=== PATIENT | female | born 1955 | race Caucasian/White ===

== ENCOUNTER 2023-07-03 12:58 | Outpatient (RCR) | payer MEDICARE, BC, SELFPAY ==
[2023-07-03 13:10] VITALS: BP 96/68
[2023-07-03] MEDS: NUCALA 1 MG SC (13:24)
== END 2023-07-06 11:34 | disposition home or self-care (01) ==
LOC: OID 12:58
PROVIDERS: ATTENDING PHYSICIAN Internal Medicine Critical Care Medicine; FAMILY PHYSICIAN Family Medicine
DX: J45.50 Severe persistent asthma, uncomplicated (principal); J44.9 Chronic obstructive pulmonary disease, unspecified
CPT/HCPCS: 96372; J2182

== ENCOUNTER 2023-08-28 11:29 | Outpatient (RCR) | payer MEDICARE, BC, SELFPAY ==
[2023-07-31 13:00] VITALS: BP 124/57
[2023-07-31] MEDS: NUCALA 1 MG SC (13:16)
[2023-08-28 11:36] VITALS: BP 118/65
[2023-08-28] MEDS: NUCALA 1 MG SC (12:03)
== END 2023-08-30 23:59 | disposition home or self-care (01) ==
LOC: OID 11:29
PROVIDERS: ATTENDING PHYSICIAN Internal Medicine Critical Care Medicine; FAMILY PHYSICIAN Family Medicine
DX: J45.50 Severe persistent asthma, uncomplicated (principal); J44.9 Chronic obstructive pulmonary disease, unspecified
CPT/HCPCS: 96372; J2182

== ENCOUNTER → 2023-09-09 12:29 | Outpatient (REF) | payer MEDICARE, BC, SELFPAY | LOC: RAD 12:29 | PROVIDERS: ATTENDING PHYSICIAN Internal Medicine Critical Care Medicine | DX: Z87.891 Personal history of nicotine dependence (principal) | CPT/HCPCS: 71271 ==

== ENCOUNTER 2023-09-25 13:46 | Outpatient (RCR) | payer MEDICARE, BC, SELFPAY ==
[2023-09-25 13:52] VITALS: BP 118/69
[2023-09-25] MEDS: NUCALA 1 MG SC (14:07)
== END 2023-09-28 09:56 | disposition home or self-care (01) ==
LOC: OID 13:46
PROVIDERS: ATTENDING PHYSICIAN Internal Medicine Critical Care Medicine; FAMILY PHYSICIAN Family Medicine
DX: J45.50 Severe persistent asthma, uncomplicated (principal); J44.9 Chronic obstructive pulmonary disease, unspecified
CPT/HCPCS: 96372; J2182

== ENCOUNTER 2023-10-23 13:48 | Outpatient (RCR) | payer MEDICARE, BC, SELFPAY ==
[2023-10-23 14:12] VITALS: BP 111/52
[2023-10-23] MEDS: NUCALA 1 MG SC (14:30)
== END 2023-10-30 23:59 | disposition home or self-care (01) ==
LOC: OID 13:48
PROVIDERS: ATTENDING PHYSICIAN Internal Medicine Critical Care Medicine; FAMILY PHYSICIAN Family Medicine
DX: J45.50 Severe persistent asthma, uncomplicated (principal); J44.9 Chronic obstructive pulmonary disease, unspecified
CPT/HCPCS: 96372; J2182

== ENCOUNTER 2023-11-19 19:37 | Inpatient (IN) | payer MEDICARE, BC, SELFPAY ==
[2023-11-19] VITALS (8 sets, daily range): BP systolic 97–142; BP diastolic 47–67; BMI 28.3; BMI 27.7
[2023-11-19 14:02] LABS: % Basophils 0.2 % (0-2); % Immature Granulocytes 0.3 % (0-0.5); % Lymphocytes 4.7 % (20.5-51.1); % Monocytes 3.5 % (1.7-9.3); % Neutrophils 91.3 % (42.2-75.2); Absolute Lymphocytes 0.6 10^3/uL (1.2-3.4); Absolute Monocytes 0.4 10^3/uL (0.1-0.6); Absolute Neutrophils 10.8 10^3/uL (1.4-6.5); Hematocrit 40.3 % (37.0-47.0); Hemoglobin 12.9 g/dL (12.0-16.0); Mean Corpuscular Hgb 28.8 pg (27.0-31.0); Mean Platelet Volume 10.6 fL (7.4-10.4); Nucleated Red Blood Cells % 0 %; Platelet Count 282 10^3/uL (130-400); Red Blood Cell Count 4.48 10^6/uL (4.20-5.40); Red Cell Dist. Width 14.2 % (11.5-14.5); White Blood Cell Count 11.8 10^3/uL (4.8-10.8)
[2023-11-19 14:19] LABS: ALT (SGPT) 19 U/L (0-35); AST (SGOT) 19 U/L (14-36); Alkaline Phosphatase 74 U/L (38-126); Blood Urea Nitrogen 18 mg/dl (7-17); Calcium 9.5 mg/dl (8.4-10.2); Carbon Dioxide 31 mmol/L (22-30); Chloride 102 mmol/L (98-107); Glucose 208 mg/dl (70-99); Potassium 4.3 mmol/L (3.5-5.1); Sodium 138 mmol/L (135-145); Total Bilirubin 0.4 mg/dl (0.2-1.3); eGFR > 60.00
--- NOTE | 2023-11-19 14:38 | ED.GENMED ---
History of Present Illness
<Brooklyn Lee PA-C - Last Filed: 11/19/23 20:41>
General
Chief Complaint: Breathing Problem
Source: patient
Exam Limitations: none
Time Seen by Provider: 11/19/23 14:19
Nursing documentation reviewed up to this point in time: agreed with
History of Present Illness
History of Present Illness:
This is a 68-year-old female with past medical history of COPD, diabetes on metformin, hypothyroidism presenting emergency department today with concerns of shortness of breath. Patient states that at the start of October, her COPD's are getting a lot
worse. She started experiencing a lot more shortness of breath and chest tightness and usually does at baseline. Patient takes montelukast inhaler daily and uses albuterol inhaler as needed and DuoNeb treatments as needed. In the past, patient
had to do use 2 L of oxygen with sleeping but now, the past week or so, she has had to use oxygen during the day as well. Patient saw her training program manager and was put on oral prednisone 2 different times with no relief. Patient denies any fevers or
chills, any sick contacts, any swelling in her legs. Patient denies any back pain. Patient denies any syncopal episodes. Patient denies any abdominal pain, nausea, vomiting. Patient denies any constipation or diarrhea. Patient is up-to-date on
her vaccinations
Past History
<Brooklyn Lee PA-C - Last Filed: 11/19/23 20:41>
Past History
ED Past Medical History: Asthma, COPD, GERD, Hypothyroidism and Other (Acute pancreatitis November 2015. Gastritis, [place]'s esophagus)
ED Past Surgical History: Orthopedic
Patient has exhibited threatening behavior?: No
PSI?: No
Social History
Tobacco: Former smoker
Alcohol: Occasional
Drug: None
Personal:
Living: with family
Employment: Retired
Family History
Family History: Other; Negative Diabetes, Hypertension or CAD
Review of Systems
<Brooklyn Lee PA-C - Last Filed: 11/19/23 20:41>
Review of Systems
All Other Systems: ROS reviewed and negative except as documented in HPI and ROS
Phy Exam
<Brooklyn Lee PA-C - Last Filed: 11/19/23 20:41>
Physical Exam
Physical Exam:
General: Patient is well appearing and in no acute distress; non-toxic
Skin: Warm and dry, no rashes or lesions
Head: Normocephalic, atraumatic
Eyes: Sclera non-icteric. EOMs intact.
Cardiac: Regular rate and rhythm, no murmurs
Peripheral Vascular: No lower extremity swelling or edema, 2+ dorsalis pedis pulses bilaterally
Pulm: Increased respiratory rate, poor air movement, scattered wheezing heard in multiple garnica bilaterally
Abdomen: No abdominal tenderness to palpation
Neuro: CN II-XII intact, no focal neurologic deficits.
Psychiatric: Appropriate mood and affect.
Scores
<Brooklyn Lee PA-C - Last Filed: 11/19/23 20:41>
Heart Failure Risk
Heart Failure Risk Score: Not Applicable
Course
<TYRA Contreras Last Filed: 11/19/23 20:41>
Orders/Labs/Results
Orders:
Orders
11/19/23 13:49
Complete Blood Count/With Diff Urgent
Comprehensive Metabolic Panel Urgent
Glycohemoglobin (HgbA1c) Urgent
11/19/23 14:21
CR Chest - 2 Views Urgent
Comment:
Reason For Exam: shortness of breath
11/19/23 14:45
COVID-19 Antigen Urgent
Source: Nasal Swab
Influenza A+B Rapid Molecular Urgent
MARGARITO Source: Nasal Swab
Specimen Description:
11/19/23 Dinner
1800 calorie (15 carb) Diabetic
At Your Request: Full Participation
Does patient need a safe tray?: No
11/19/23 15:25
Ipratropium/Albuterol Sulfate [Duoneb] 3 ml INH R NOW ONE
11/19/23 16:03
Ipratropium/Albuterol Sulfate [Duoneb] 3 ml INH R NOW STA
11/19/23 16:10
Ipratropium/Albuterol Sulfate [Duoneb] 3 ml INH R NOW ONE
11/19/23 16:11
Ipratropium/Albuterol Sulfate [Duoneb] 3 ml .ROUTE .STK-MED ONE
11/19/23 17:46
Dexamethasone [Decadron] 10 mg PO NOW STA
11/19/23 17:54
Doxycycline Hyclate [Vibramycin] 100 mg 0.9% Sodium Chloride 250 ml [Nss] 250 ml IV NOW
11/19/23 18:47
Admit/Transfer Patient As Directed
Co-Sign Provider:
Level of Care: Inpatient admission
Assign to:: Medical/Surgical
Physician / Group: Hospitalist
Transfer to: Medical/Surgical
Diagnosis: COPD exacerbation
Patient Condition: Fair
Reason for Hospitalization: COPD exacerbation
Expected length of stay greater than two midnights?: Yes
ELOS- Estimated Length of Stay in days: 3
I certify the patient meets the requirements for IP care: Yes
11/19/23 19:00
Code Status As Directed
Resuscitation Status: Full Code
11/19/23 20:25
0.9% Sodium Chloride 1000 ml [Nss] 1,000 ml IV 100 mls/hr
Acetaminophen [Tylenol] 650 mg PO Q4HPRN PRN
Albuterol Nebs [Ventolin Nebules] 2.5 mg INH R Q6HPRN PRN
Albuterol [ProAIR HFA INHALER] 2 puff INH R Q4HPRN PRN
Azithromycin [Zithromax] 500 mg PO Q24H
Budesonide [Pulmicort] 0.5 mg INH R BID
Dexamethasone Sod Phosphate [Decadron] 4 mg IV Q8H
Dextrose 50%-Water [Dextrose 50% Syringe] 12.5 grams IV [id number] PRN
Glucagon [GlucaGen] 1 mg IM PRN PRN
Ipratropium/Albuterol Sulfate [Duoneb] 3 ml INH R Q4HPRN PRN
Ipratropium/Albuterol Sulfate [Duoneb] 3 ml INH R QID
Ipratropium/Albuterol Sulfate [Duoneb] 3 ml INH R QID
Metformin Extended Release [Glucophage Xr Extended Release] 500 mg PO BID
11/19/23 20:25
Add On- LAB Routine
Tests Added?: HgbA1C to today's lab
Electrocardiogram (*1) Urgent
Reason for Study: QTc Monitoring
PULMONARY CONSULT Routine
Consulting Provider: Jermain Powers
Was physician already notified: Yes
Reason for consult: COPD exacerbation
Activity As Directed
Activity Level: As Tolerated
Bedside Glucose Monitoring As Directed
Frequency: AC&HS
Additional Instructions:: Change to q6h if pt on TPN, tube feeding or not eating
INT (Intravenous Needle Therapy) As Directed
Comment: maintain IV access
Intake/ Output As Directed
Frequency: Per unit guidelines
Vital Signs As Directed
Frequency: Per unit guidelines
Weight As Directed
Frequency: Daily
Copd Education [RESP] Routine
O2 Therapy [RESP] Routine
Nasal Cannula Liter Flow: 3 LPM
Titrate/Wean O2 to maintain O2 sat greater than (%): 92
Special Instructions: adjust, if necessary, to avoid hyperoxia in CO2 retainers.
Use High Flow O2 if necessary
Ot Eval And Treat Routine
Pt Eval And Treat Routine
Activity Level: As Tolerated
DX Deep Vein Thrombosis Video Routine
11/20/23 02:00
Dexamethasone Sod Phosphate [Decadron] 4 mg IV Q8H
11/20/23 06:00
Electrocardiogram (*1) IN AM
Reason for Study: QTc Monitoring
Basic Metabolic Panel IN AM
Complete Blood Count/With Diff IN AM
Glycohemoglobin (HgbA1c) IN AM
Protime/PTT IN AM
Influenza A+B Rapid Molecular IN AM
MARGARITO Source: Nasal Swab
Specimen Description:
Levothyroxine [Synthroid] 137 mcg PO DAILY@0600
11/20/23 07:30
Insulin Aspart Corrective Low [Novolog Flexpen-Low Resistance] See Protocol SC AC
11/20/23 08:00
Cholecalciferol (Vitamin D3) [VITAMIN D3 (cholecalciferol)] 25 mcg PO DAILY
Furosemide [Lasix] 20 mg PO DAILY
Guaifenesin [Mucinex] 600 mg PO DAILY
Montelukast Sodium [Singulair] 10 mg PO DAILY
Multivitamin [Theragran] 1 tablet PO DAILY
pmjptceqsey-istudgqrf-dwnuwjav [Trelegy Ellipta] 1 inh INH R DAILY
11/20/23 18:00
Atorvastatin [Lipitor] 10 mg PO DAILY
Enoxaparin Sodium [Lovenox] 40 mg SC QPM
Abnormal Lab Results
11/19/23
13:49
WBC 11.8 H 10^3/uL
(4.8-10.8)
MCHC 32.0 L g/dL
(33.0-37.0)
MPV 10.6 H fL
(7.4-10.4)
Absolute Neuts (auto) 10.8 H 10^3/uL
(1.4-6.5)
Absolute Lymphs (auto) 0.6 L 10^3/uL
(1.2-3.4)
Neutrophils % 91.3 H %
(42.2-75.2)
Lymphocytes % 4.7 L %
(20.5-51.1)
Carbon Dioxide 31 H mmol/L
(22-30)
BUN 18 H mg/dl
(7-17)
Glucose 208 H mg/dl
(70-99)
Total Protein 6.0 L g/dl
(6.3-8.2)
11/19/23 13:49
11/19/23 13:49
Vital Signs
Initial and Last Documented VS:
Initial Vital Signs
Temp Pulse Resp BP Pulse Ox
99.5 F 92 16 115/58 98
11/19/23 13:41 11/19/23 13:41 11/19/23 13:41 11/19/23 13:41 11/19/23 13:41
Last Documented Vital Signs
Temp Pulse Resp BP Pulse Ox
99.5 F 87 26 97/58 96
11/19/23 13:41 11/19/23 19:45 11/19/23 19:45 11/19/23 19:00 11/19/23 19:45
<Jose Reaves, DO - Last Filed: 11/19/23 17:32>
Orders/Labs/Results
Orders:
Orders
11/19/23 13:49
Complete Blood Count/With Diff Urgent
Comprehensive Metabolic Panel Urgent
Glycohemoglobin (HgbA1c) Urgent
11/19/23 14:21
CR Chest - 2 Views Urgent
Comment:
Reason For Exam: shortness of breath
11/19/23 14:45
COVID-19 Antigen Urgent
Source: Nasal Swab
Influenza A+B Rapid Molecular Urgent
MARGARITO Source: Nasal Swab
Specimen Description:
11/19/23 Dinner
1800 calorie (15 carb) Diabetic
At Your Request: Full Participation
Does patient need a safe tray?: No
11/19/23 15:25
Ipratropium/Albuterol Sulfate [Duoneb] 3 ml INH R NOW ONE
11/19/23 16:03
Ipratropium/Albuterol Sulfate [Duoneb] 3 ml INH R NOW STA
11/19/23 16:10
Ipratropium/Albuterol Sulfate [Duoneb] 3 ml INH R NOW ONE
11/19/23 16:11
Ipratropium/Albuterol Sulfate [Duoneb] 3 ml .ROUTE .STK-MED ONE
11/19/23 17:46
Dexamethasone [Decadron] 10 mg PO NOW STA
11/19/23 17:54
Doxycycline Hyclate [Vibramycin] 100 mg 0.9% Sodium Chloride 250 ml [Nss] 250 ml IV NOW
11/19/23 18:47
Admit/Transfer Patient As Directed
Co-Sign Provider:
Level of Care: Inpatient admission
Assign to:: Medical/Surgical
Physician / Group: Hospitalist
Transfer to: Medical/Surgical
Diagnosis: COPD exacerbation
Patient Condition: Fair
Reason for Hospitalization: COPD exacerbation
Expected length of stay greater than two midnights?: Yes
ELOS- Estimated Length of Stay in days: 3
I certify the patient meets the requirements for IP care: Yes
11/19/23 19:00
Code Status As Directed
Resuscitation Status: Full Code
11/19/23 20:25
0.9% Sodium Chloride 1000 ml [Nss] 1,000 ml IV 100 mls/hr
Acetaminophen [Tylenol] 650 mg PO Q4HPRN PRN
Albuterol Nebs [Ventolin Nebules] 2.5 mg INH R Q6HPRN PRN
Albuterol [ProAIR HFA INHALER] 2 puff INH R Q4HPRN PRN
Azithromycin [Zithromax] 500 mg PO Q24H
Budesonide [Pulmicort] 0.5 mg INH R BID
Dexamethasone Sod Phosphate [Decadron] 4 mg IV Q8H
Dextrose 50%-Water [Dextrose 50% Syringe] 12.5 grams IV [id number] PRN
Glucagon [GlucaGen] 1 mg IM PRN PRN
Ipratropium/Albuterol Sulfate [Duoneb] 3 ml INH R Q4HPRN PRN
Ipratropium/Albuterol Sulfate [Duoneb] 3 ml INH R QID
Ipratropium/Albuterol Sulfate [Duoneb] 3 ml INH R QID
Metformin Extended Release [Glucophage Xr Extended Release] 500 mg PO BID
11/19/23 20:25
Add On- LAB Routine
Tests Added?: HgbA1C to today's lab
Electrocardiogram (*1) Urgent
Reason for Study: QTc Monitoring
PULMONARY CONSULT Routine
Consulting Provider: Jermain Powers
Was physician already notified: Yes
Reason for consult: COPD exacerbation
Activity As Directed
Activity Level: As Tolerated
Bedside Glucose Monitoring As Directed
Frequency: AC&HS
Additional Instructions:: Change to q6h if pt on TPN, tube feeding or not eating
INT (Intravenous Needle Therapy) As Directed
Comment: maintain IV access
Intake/ Output As Directed
Frequency: Per unit guidelines
Vital Signs As Directed
Frequency: Per unit guidelines
Weight As Directed
Frequency: Daily
Copd Education [RESP] Routine
O2 Therapy [RESP] Routine
Nasal Cannula Liter Flow: 3 LPM
Titrate/Wean O2 to maintain O2 sat greater than (%): 92
Special Instructions: adjust, if necessary, to avoid hyperoxia in CO2 retainers.
Use High Flow O2 if necessary
Ot Eval And Treat Routine
Pt Eval And Treat Routine
Activity Level: As Tolerated
DX Deep Vein Thrombosis Video Routine
11/20/23 02:00
Dexamethasone Sod Phosphate [Decadron] 4 mg IV Q8H
11/20/23 06:00
Electrocardiogram (*1) IN AM
Reason for Study: QTc Monitoring
Basic Metabolic Panel IN AM
Complete Blood Count/With Diff IN AM
Glycohemoglobin (HgbA1c) IN AM
Protime/PTT IN AM
Influenza A+B Rapid Molecular IN AM
MARGARITO Source: Nasal Swab
Specimen Description:
Levothyroxine [Synthroid] 137 mcg PO DAILY@0600
11/20/23 07:30
Insulin Aspart Corrective Low [Novolog Flexpen-Low Resistance] See Protocol SC AC
11/20/23 08:00
Cholecalciferol (Vitamin D3) [VITAMIN D3 (cholecalciferol)] 25 mcg PO DAILY
Furosemide [Lasix] 20 mg PO DAILY
Guaifenesin [Mucinex] 600 mg PO DAILY
Montelukast Sodium [Singulair] 10 mg PO DAILY
Multivitamin [Theragran] 1 tablet PO DAILY
tgathzcrtxn-ohcvwonhs-wqcaktrd [Trelegy Ellipta] 1 inh INH R DAILY
11/20/23 18:00
Atorvastatin [Lipitor] 10 mg PO DAILY
Enoxaparin Sodium [Lovenox] 40 mg SC QPM
Abnormal Lab Results
11/19/23
13:49
WBC 11.8 H 10^3/uL
(4.8-10.8)
MCHC 32.0 L g/dL
(33.0-37.0)
MPV 10.6 H fL
(7.4-10.4)
Absolute Neuts (auto) 10.8 H 10^3/uL
(1.4-6.5)
Absolute Lymphs (auto) 0.6 L 10^3/uL
(1.2-3.4)
Neutrophils % 91.3 H %
(42.2-75.2)
Lymphocytes % 4.7 L %
(20.5-51.1)
Carbon Dioxide 31 H mmol/L
(22-30)
BUN 18 H mg/dl
(7-17)
Glucose 208 H mg/dl
(70-99)
Total Protein 6.0 L g/dl
(6.3-8.2)
11/19/23 13:49
11/19/23 13:49
Vital Signs
Initial and Last Documented VS:
Initial Vital Signs
Temp Pulse Resp BP Pulse Ox
99.5 F 92 16 115/58 98
11/19/23 13:41 11/19/23 13:41 11/19/23 13:41 11/19/23 13:41 11/19/23 13:41
Last Documented Vital Signs
Temp Pulse Resp BP Pulse Ox
99.5 F 87 26 97/58 96
11/19/23 13:41 11/19/23 19:45 11/19/23 19:45 11/19/23 19:00 11/19/23 19:45
Jorgelt;Brooklyn Lee PA-C - Last Filed: 11/19/23 20:41>
MDM/Problems Addressed
Differential Diagnosis Includes:
ddx include COPD progression, COPD exacerbation, pneumonia, heart failure, ACS, pulmonary embolism
MDM/Problems Addressed:
Shortness of breath:
This is a 68-year-old female with past medical history of COPD, diabetes on metformin, hypothyroidism presenting emergency department today with concerns of shortness of breath. Patient denies any purulent sputum production, any cough. Patient
denies any back pain. Patient was sent in by her training program manager for further evaluation because patient has been feeling outpatient steroid tapers. Patient also previously only use oxygen at night and now she is requiring it throughout the day to
maintain her oxygen saturations. Because of this new oxygen requirement and failing outpatient therapy admission is indicated.
Chronic conditions affecting care:
COPD, diabetes on metformin, hypothyroidism
Acute Exacerbation and/or Progression of Chronic Illness:
COPD, diabetes on metformin, hypothyroidism
<Brooklyn Lee PA-C - Last Filed: 11/19/23 20:41>
*Critical Care Note
Total Time (30-74mins, 75-104mins- exclusive of procedures): Not Applicable
<Brooklyn Lee PA-C - Last Filed: 11/19/23 20:41>
Patient Management
Discussion with other providers: Hospitalist
Escalation/DeEscalation of care consider admission/obs:
Admit indicated, please see MDM. Case discussed with my attending Dr. Reaves.
ED Attending Note
<Brooklyn Lee PA-C - Last Filed: 11/19/23 20:41>
-
Portions of this chart may have been created with voice recognition software.� Occasional wrong word or��sound alike� substitutions may have occurred due to the inherent limitations of voice recognition software.
<Jose Reaves DO - Last Filed: 11/19/23 17:32>
ED Attending Note
Patient seen and examined by attending physician: Yes
I performed the substantive portion of visit, reviewed & personally made and approve the management plan that is documented in note by myself or SETH.: Yes
Discharge Plan
Departure
Patient Disposition: Admit
Date of Disposition: 11/19/23
Time of Disposition: 17:50
Admit to: Med/Surg
Presentation/result/management discussed w/ accepting MD/DO: Hospitalist
Condition: Fair
Discharge Problem:
COPD exacerbation
Interventions
Interventions:
*Risk Screen - Suicide Last Done: 11/19/23 14:26
*General Assessment Last Done: 11/19/23 14:26
*Neglect/Abuse Screening Last Done: 11/19/23 14:26
ED- Fall Risk Assessment Last Done: 11/19/23 14:26
*ED COVID-19 Vaccine History Last Done: 11/19/23 13:41
*Nursing Disposition Last Done: 11/19/23 20:26
ED- Cardiac Assessment Last Done: 11/19/23 16:21
ED- Pulmonary Assessment Last Done: 11/19/23 16:21
Discharge Date and Time
Discharge Date/Time: 11/19/23 20:27
[2023-11-19 15:05] LABS: COVID-19 Antigen Negative (Negative)
[2023-11-19] MEDS: DUONEB 3 ML INH ×4 (15:39→21:09)
[2023-11-19] MEDS: DECADRON 10 MG PO (17:56)
[2023-11-19] MEDS: VIBRAMYCIN 260 MG IV (18:32)
--- NOTE | 2023-11-19 18:47 | HPS.HSE ---
Addendum entered and electronically signed by Tashia Spears MD 11/19/23 20:20:
Patient seen and examined independently--agree with plan set forth by Dr. Hood
Allergies
Allergy/AdvReac Type Severity Reaction Status Date / Time
latex Allergy Rash Verified 11/19/23 13:44
levofloxacin [From Levaquin] Allergy Achilles Verified 11/19/23 13:44
Tendonitis
Penicillins Allergy Full-body Verified 11/19/23 13:44
rash;
tolerated
ceftriaxone
and
cefepime
Home Medications
montelukast 10 mg tablet 10 mg PO DAILY Lung/breathing issues 07/12/11
levothyroxine 137 mcg tablet (Synthroid) 137 mcg PO DAILY Thyroid 06/09/18
dupilumab 300 mg/2 mL subcutaneous syringe (Dupixent) 300 mg SQ Q2W asthma/atopic dermatitis 05/11/19
atorvastatin 10 mg tablet 10 mg PO DAILY High cholesterol 04/29/21
metformin 500 mg tablet,extended release 24 hr 500 mg PO BID Diabetes 04/15/22
multivitamin 1 tab PO DAILY Supplement 04/15/22
guaifenesin 600 mg tablet, extended release 12 hr (Mucinex) 600 mg PO DAILY Congestion 07/15/22
furosemide 20 mg tablet (Lasix) 20 mg PO DAILY Fluid Retention/Swelling 09/18/22
prednisone 20 mg tablet 40 mg PO DAILY 10/23/23
albuterol sulfate 2.5 mg/3 mL (0.083 %) solution for nebulization 2.5 mg inhalation R Q6HPRN PRN sob/wheezing 11/19/23
albuterol sulfate 90 mcg/actuation aerosol inhaler 2 puff inhalation R Q4HPRN PRN sob 11/19/23
budesonide 0.5 mg/2 mL suspension for nebulization 0.5 mg inhalation R BID 11/19/23
cholecalciferol (vitamin D3) 25 mcg (1,000 unit) tablet 25 mcg PO DAILY 11/19/23
fluticasone fur. 200 mcg-umeclid 62.5 mcg-vilant 25 mcg inhalat.powder (Trelegy Ellipta) 1 inh inhalation R DAILY 11/19/23
mepolizumab 100 mg/mL subcutaneous auto-injector (Nucala) 100 mg SC QMONTH 11/19/23
GENERAL: well developed, well nourished, female in mild resp distress
HEENT: NC/AT--O2 NC 3L
HEART: regular rate and rhythm, +S1, +S2
LUNGS : decreased breath sounds bilaterally with diffuse wheezing with forced exp wheeze
ABDOM: soft, nontender, nondistended, + bowel sounds
EXT: no cyanosis, clubbing, or edema
NEUROLOGIC: grossly intact
Acute hypoxic respiratory failure--Secondary to COPD exacerbation (for the last 3 weeks) with increased oxygen requirements--Patient known to Dr. Kaiser. Recent steroid treatment was not effective--CXR unremarkable. Pneumonia less likely---Start
Decadron 4 mg every 8 hours---Continue albuterol, Trelegy, DuoNeb, Mucinex, Pulmicort and montelukast---Maintain O2> 92%, MAP> 65---Hold prednisone---Hold Nucala---Hold Dupixent---Pulmonary consult--Azithromycin 500 mg daily--Wean off oxygen as
tolerated--Low-dose CT outpatient due to smoking history--PT/OT.
Type 2 diabetes--Continue metformin--Sliding scale insulin--Accu-Cheks.
Hypercholesterolemia--Continue atorvastatin
Heart failure with preserved ejection fraction without exacerbation---Continue furosemide.
Hypothyroidism--Continue levothyroxine
DVT prophylaxis: Lovenox
CODE STATUS: Full code
Original Note:
Family Physician
-
Family Physician: Gayathri Tena
Chief Complaint
-
Shortness of breath
History of Present Illness
Patient is a 68-year old female with past medical history of COPD, eosinophilic asthma, pancreatitis, type II diabetes, hypothyroidism, centrilobular emphysema, obstructive sleep apnea, GERD, who presents to ED with complaint of worsening
shortness of breath on exertion and wheezing for the past month. She also reports chest tightness, occasional cough, with minimal sputum production. Patient was recently seen by her military [employer] wireless manager and was started on 40 mg prednisone daily due to
worsening symptoms. However patient did not improve prompting her visit to the ED today. She reports using portable oxygen with concentrator at home at 2 L only at night, however recently patient has started using oxygen during the day. She uses
albuterol, DuoNeb, and montelukast inhaler at home as needed.She denies any sick contacts, home pets, worsening cough from baseline, chest pain, dizziness, and headaches, fever and chills, abdominal pain, nausea, vomiting, diarrhea.
Medical History
Past Medical History
Past Medical History: Reports Asthma, COPD, GERD, Hypothyroidism and NIDDM
Past Surgical History: Reports Cholecystectomy (Laparoscopic with [facility] 03/2023) and
Additional Past Surgical History:
Torn rotator cuff 05/03/2020
Social History
Tobacco: Former Smoker
Drug: None
Personal:
Living: With Family
Employment: Retired
Family History
Family History: Not pertinent
Allergies / Home Medications
Allergies reflects when
Allergies
Allergy/AdvReac Type Severity Reaction Status Date / Time
latex Allergy Rash Verified 11/19/23 13:44
levofloxacin [From Levaquin] Allergy Achilles Verified 11/19/23 13:44
Tendonitis
Penicillins Allergy Full-body Verified 11/19/23 13:44
rash;
tolerated
ceftriaxone
and
cefepime
Allergies were last updated in [facility].
Home Medications with original date entered in [facility]
Allergy/Medication List:
Allergies
Allergy/AdvReac Type Severity Reaction Status Date / Time
latex Allergy Rash Verified 11/19/23 13:44
levofloxacin [From Levaquin] Allergy Achilles Verified 11/19/23 13:44
Tendonitis
Penicillins Allergy Full-body Verified 11/19/23 13:44
rash;
tolerated
ceftriaxone
and
cefepime
Review of Systems
-
History Source: Patient
A 12 point ROS was completed and negative except as noted: Yes
Constitutional: Denies Fever or Chills
EENT: Reports No Symptoms
Respiratory: Reports Cough, Trouble Breathing and Other (Wheezing)
Cardiac: Reports No Symptoms; Denies Chest Pain or Palpitations
Abdomen/GI: Reports No Symptoms; Denies Abdominal Pain, Nausea, Vomiting, Diarrhea or Constipated
: Reports No Symptoms
Musculoskeletal: Reports No Symptoms
Skin: Reports No Symptoms
Physical Exam
Vital Signs
Vital Signs
Temp Pulse Resp BP Pulse Ox
99.5 F 88 25 103/60 97
11/19/23 13:41 11/19/23 18:32 11/19/23 18:32 11/19/23 18:00 11/19/23 18:32
Physical Exam
General: Well Developed, No Apparent Distress, Comfortable and Conversant
HEENT: NormoCephalic
Respiratory: Wheezes (Bilateral wheezing) and Non Labored Respirations; No Crackles or Accessory Resp Muscle Use
Cardiac: S1/S2; No Murmur or Rub
GI: Soft, Non Tender, Non Distended and Normal Bowel Sounds
Musculoskeletal: No Cyanosis and No Edema
Skin: Warm and Dry
Neuro: Awake, Alert, Oriented and AO x 3
Psych: Calm and Intact Judgment/Insight
Laboratory Results
-
11/19/23 13:49
11/19/23 13:49
Laboratory Results
Total Bilirubin 0.4 mg/dl (0.2-1.3) 11/19/23 13:49
AST 19 U/L (14-36) 11/19/23 13:49
ALT 19 U/L (0-35) 11/19/23 13:49
Alkaline Phosphatase 74 U/L (38-126) 11/19/23 13:49
Data Reviewed
-
Diagnostic Radiology: Image Personally Visualized and interpreted and Report Reviewed by me
Lab Data: Labs Reviewed by me and Discussed with Physician
Old Records: Reviewed
Impression/Plan
-
Assessment: 68-year-old female with history of COPD, eosinophilic asthma, centrilobular emphysema, type 2 diabetes hypothyroidism who presented to ED with shortness of breath on exertion, wheezing and chest tightness for the past month. Patient
was recently seen by her [employer] wireless manager, treated with 40 mg prednisone but did not improve.
IMPRESSION:
Acute hypoxic respiratory failure
Not requiring 3 L oxygen NC
PLAN:
Acute hypoxic respiratory failure.
-Secondary to COPD exacerbation with increased oxygen requirements.
-Patient known to Dr. Kaiser. Recent steroid treatment was not effective.
-[id number] history of smoking, quit 2010.
-CXR unremarkable. Pneumonia less likely.
-Start Decadron 4 mg every 8 hours.
-Continue albuterol, Trelegy, DuoNeb, Mucinex, Pulmicort and montelukast.
-Maintain O2> 92%, MAP> 65.
-Hold prednisone.
-Hold Nucala.
-Hold Dupixent
-Pulmonary consult
-Azithromycin 500 mg daily
-Wean off oxygen as tolerated.
-Low-dose CT outpatient due to smoking history.
-Consider breathing treatments in AM.
-PT/OT.
Type 2 diabetes
-Continue metformin
-Sliding scale insulin
-Accu-Cheks.
-Blood glucose goal 140 to 180 mg/DL
Hypercholesterolemia
-Continue atorvastatin
Heart failure with preserved ejection fraction
-Continue furosemide.
Hypothyroidism
-Continue levothyroxine
DVT prophylaxis: Lovenox
CODE STATUS: Full code
[2023-11-19] MEDS: NSS 1000 IV (20:44)
[2023-11-19] MEDS: PULMICORT 0.5 MG INH (21:09)
[2023-11-19 21:25] LABS: Glucose - Point of Care 227 mg/dl (70-99)
[2023-11-19] MEDS: GLUCOPHAGE XR EXTENDED RELEASE 500 MG PO (21:27)
[2023-11-19] MEDS: ZITHROMAX 500 MG PO (21:27)
--- NOTE | 2023-11-19 21:56 | PTCARENOTE ---
Received patient from ED, AAOx4. Patient able to ambulate from stretcher to bed with steady gait. No c/o pain at this time. 96% on 3 L, FORTUNE, moist non productive cough. Oriented to unit, call delatorre in reach. Plan of care continues.
[2023-11-20] MEDS: DECADRON 4 MG IV ×3 (02:21→17:30)
[2023-11-20] MEDS: SYNTHROID 137 MCG PO (05:56)
[2023-11-20 05:57] LABS: % Basophils 0.2 % (0-2); % Immature Granulocytes 0.9 % (0-0.5); % Monocytes 1.3 % (1.7-9.3); % Neutrophils 93.6 % (42.2-75.2); Absolute Immature Granulocytes 0.1 10^3/uL (0-0.05); Absolute Lymphocytes 0.5 10^3/uL (1.2-3.4); Absolute Monocytes 0.2 10^3/uL (0.1-0.6); Absolute Neutrophils 10.8 10^3/uL (1.4-6.5); Hematocrit 37.6 % (37.0-47.0); Hemoglobin 12.3 g/dL (12.0-16.0); Mean Corp Hgb Conc. 32.7 g/dL (33.0-37.0); Mean Corpuscular Hgb 28.8 pg (27.0-31.0); Mean Corpuscular Volume 88.1 fL (81.0-99.0); Mean Platelet Volume 10.7 fL (7.4-10.4); Nucleated Red Blood Cells % 0 %; Platelet Count 266 10^3/uL (130-400); Red Blood Cell Count 4.27 10^6/uL (4.20-5.40); Red Cell Dist. Width 14.3 % (11.5-14.5); White Blood Cell Count 11.5 10^3/uL (4.8-10.8)
[2023-11-20] MEDS: NSS 1000 IV (05:58)
[2023-11-20 06:09] LABS: INR 0.97; PT 12.8 Sec (11.4-14.6)
[2023-11-20 06:10] LABS: APTT 23.2 Sec (23.4-35.0)
--- NOTE | 2023-11-20 06:12 | PTCARENOTE ---
EKG's done x 2 this shift per order to monitor QTC. 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
[2023-11-20 06:13] LABS: Blood Urea Nitrogen 21 mg/dl (7-17); Calcium 9.1 mg/dl (8.4-10.2); Carbon Dioxide 28 mmol/L (22-30); Chloride 106 mmol/L (98-107); Estimated Creatinine Clearance 88 ml/min; Glucose 155 mg/dl (70-99); Potassium 4.8 mmol/L (3.5-5.1); Sodium 139 mmol/L (135-145); eGFR > 60.00
[2023-11-20] MEDS: DUONEB 3 ML INH (06:54)
[2023-11-20] MEDS: PULMICORT 0.5 MG INH ×2 (06:55→19:36)
[2023-11-20 07:11] LABS: Glucose - Point of Care 175 mg/dl (70-99)
--- NOTE | 2023-11-20 07:27 | W.PN.HOSP.TC ---
Addendum entered and electronically signed by Tashia Spears MD 11/20/23 19:00:
pt seen and examined independently--agree with plan as set forth by Dr. Hood
GENERAL: well developed, well nourished, female in mild resp distress
HEENT: NC/AT--O2 NC 3L
HEART: regular rate and rhythm, +S1, +S2
LUNGS : decreased breath sounds bilaterally with diffuse wheezing with forced exp wheeze--although improved from admission
ABDOM: soft, nontender, nondistended, + bowel sounds
EXT: no cyanosis, clubbing, or edema
NEUROLOGIC: grossly intact
Acute hypoxic respiratory failure--Secondary to COPD exacerbation (for the last 3 weeks) with increased oxygen requirements--Patient known to Dr. Kaiser. Recent steroid treatment was not effective--CXR unremarkable. Pneumonia less likely---Start
Decadron 4 mg every 8 hours, if doing OK in AM, change to prednisone 50 mg daily with taper at d/c---Continue albuterol, Trelegy, DuoNeb, Mucinex, Pulmicort and montelukast---Maintain O2> 92%, MAP> 65---Hold prednisone---Hold Nucala---Hold
Dupixent---apprec Pulmonary--Azithromycin 500 mg daily then back to three times weekly--Wean off oxygen as tolerated--Low-dose CT outpatient due to smoking history--PT/OT.
Type 2 diabetes--Continue metformin--Sliding scale insulin--Accu-Cheks.
Hypercholesterolemia--Continue atorvastatin
Heart failure with preserved ejection fraction without exacerbation---Continue furosemide.
Hypothyroidism--Continue levothyroxine
DVT prophylaxis: Lovenox
CODE STATUS: Full code
Original Note:
Today's Communication/Plan
-
Continue bronchodilators
Continue antibiotics
Williamson catheter, I's and O's, daily weights
Wean oxygen as tolerated
Wean of steroids
Accu-Cheks
Assessment / Plan
Assessment / Plan
Assessment: 68-year old female with past medical history of COPD, eosinophilic asthma, pancreatitis, type II diabetes, hypothyroidism, centrilobular emphysema, obstructive sleep apnea, GERD, who presents to ED with complaint of worsening
shortness of breath on exertion and wheezing for the past month. She also reports chest tightness, occasional cough, with minimal sputum production.
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
COPD
Eosinophilic asthma
Pancreatitis
Type 2 diabetes
Hypothyroidism
Central lobar emphysema
Obstructive sleep apnea
GERD
Impression/plan:
Acute hypoxic respiratory failure.
-Secondary to COPD exacerbation with increased oxygen requirements, currently on 3 L oxygen NC. O2 sat 94%. [id number] history of smoking, quit 2010.
-Patient known to Dr. Kaiser. CXR unremarkable. Pneumonia less likely.
-Continue Decadron 4 mg Q8hrs, nebulized albuterol QID, Symbicort 160 mcg, Mucinex, Pulmicort 0.5 mg BID, and Spiriva 160/4.5 mcg, montelukast 10 mg daily, as needed nebulized bronchodilators.
-Incentive spirometry.
-Maintain O2> 92% with PRN O2 supplementation, MAP> 65.
-Hold home prednisone, Nucala, and Dupixent
-Pulmonary assessment and recs appreciated.
-Continue azithromycin 500 mg daily.
-Plan to wean off steroids tomorrow and consider starting 2.5 to 5 mg regular
-Wean off oxygen as tolerated.
-Low-dose CT 08/13/2023 reports no acute disease, chest with mild right upper lobe lesion bronchiolitis patient.
-PT/OT.
Type 2 diabetes
-HbA1c 6.5.
-Continue metformin
-Sliding scale insulin
-Accu-Cheks.
-Blood glucose goal 140 to 180 mg/DL
Hypercholesterolemia
-Continue atorvastatin
Heart failure with preserved ejection fraction
-Weight up from June 2023, was 76.3 kg, currently trending back down to 80.1 kg.
-Continue furosemide.
-Monitor daily weights, I's and O appreciated.
Hypothyroidism
-Continue levothyroxine
DVT prophylaxis: Lovenox
CODE STATUS: Full code
Anticipated Discharge: > 48 hours
Subjective/Interval History
-
Date of Service: November 20, 2023
Objective Data
-
Labs:
Laboratory Results
11/20/23
05:06
WBC 11.5 H
Hgb 12.3
Hct 37.6
Plt Count 266
PT 12.8
INR 0.97
APTT 23.2 L
Sodium 139
Potassium 4.8
Chloride 106
Carbon Dioxide 28
BUN 21 H
Creatinine 0.5 L
Glucose 155 H
Calcium 9.1
Vital Signs:
Daily temperature
11/20/23
07:40
Temp 97.7 F
Vital Signs
Temp Pulse Resp BP Pulse Ox
97.7 F 78 18 142/67 97
11/19/23 23:29 11/20/23 06:55 11/20/23 06:55 11/19/23 23:29 11/20/23 06:55
I&O
11/19/23 11/20/23 11/21/23
06:59 06:59 06:59
Intake Total 480 / 480
Balance 480 / 480
Review of Systems
-
History Source: Patient
All other systems: Not reviewed unless documented
Constitutional: Reports No Symptoms; Denies Fever or Chills
EENT: Reports No Symptoms Reported; Denies Sore Throat
Respiratory: Reports Cough (Mild intermittent cough) and Wheezing; Denies Trouble Breathing
Cardiac: Reports No Symptoms; Denies Chest Pain or Palpitations
Abdomen/GI: Reports No Symptoms; Denies Abdominal Pain, Nausea, Vomiting or Constipated
Genitourinary: Reports No Symptoms
Musculoskeletal: Reports No Symptoms
Skin: Reports No Symptoms
Neuro: Reports No Symptoms
Physical Exam
-
General: No Apparent Distress, Comfortable and Conversant; Negative Fever or Chills
HEENT: Atraumatic and Moist Mucous Membranes
Respiratory: Wheezes and Non Labored Respirations; Negative Rales or Crackles
Cardiac: Regular Rhythm, S1/S2 and Irregular Rhythm; Negative Murmur or Rub
GI: Soft, Nontender, Nondistended and Normal Bowel Sounds
Musculoskeletal: No Clubbing, No Cyanosis and No Edema
Neuro: Awake, Alert, Oriented, AO x 3 and No Motor Deficits
Psych: Calm and Intact Judgement/Insight
Data Reviewed
-
Diagnostic Radiology: Image personally visualized and interpreted and Report Reviewed by me
Labs: Labs Reviewed by me and Discussed with Physician
Old Records: Reviewed
[2023-11-20 07:40] VITALS: BP 113/50
[2023-11-20] MEDS: LASIX 20 MG PO (07:55)
[2023-11-20] MEDS: THERAGRAN 1 TABLET PO (07:55)
[2023-11-20] MEDS: GLUCOPHAGE XR EXTENDED RELEASE 500 MG PO ×2 (07:55→16:25)
[2023-11-20] MEDS: VITAMIN D3 (cholecalciferol) 25 MCG PO (07:55)
[2023-11-20] MEDS: SINGULAIR 10 MG PO (07:55)
[2023-11-20] MEDS: MUCINEX 600 MG PO (07:55)
[2023-11-20] MEDS: NOVOLOG FLEXPEN-LOW RESISTANCE 1 UNITS SC ×2 (07:57→12:37)
[2023-11-20 08:40] VITALS: PULSE 84; O2SAT 97
[2023-11-20 08:42] VITALS: BP 127/57; PULSE 84; O2SAT 95
--- NOTE | 2023-11-20 08:45 | CON.PUL ---
Consultation
Consultation Request
Date/Time Consultation Requested: 11/19/2023 -2024
Date/Time Consultation Performed: 11/20/2023 - 921
Requesting Provider: Dr. Hood
Performing Provider: Dr. Iglesias
Reason for Consultation: COPD exacerbation
Medical History
-
Chief Complaint: SOB
History of Present Illness:
68-year-old female former tobacco smoker (~40-PY Hx, quit 2010) with a past medical history of very severe COPD due to unremitting asthma on Nucala, centrilobular emphysema, atopic dermatitis on Dupixent, ISHMAEL intolerant to CPAP, GERD,
hypothyroidism, and chronic hypoxemic respiratory failure on home oxygen who presents with shortness of breath. Patient started to develop SOB in the first few weeks of September and she was started on a prednisone taper on 10/07/2023 by our office, and
after finishing this she felt SOB again. She first came to our office again on 10/22/2023 and saw TRACY Seo. Repeat prednisone taper was started over 18 days starting at 60 mg. Unfortunately she came back into the office again on 11/04
again with SOB and was placed back on prednisone 40 mg daily for 2 weeks. She also was on albuterol via nebulizer QID + budesonide BID, in addition to her maintenance inhaler. She returned to the office visit on 11/18 and was sent to the ER given
continued SOB despite multiple courses of prednisone. In triage she was saturating 98% on room air, breathing at 16 breaths/min, heart rate 92, afebrile to 99.5 �F and BP 115/58. Labs showed leukocytosis to 11.8, glucose 208, and was COVID antigen
negative. Flu swab A/B was negative. CXR shows no active cardiopulmonary disease. She was given Decadron, doxycycline and DuoNebs and admitted to the hospitalist service with pulmonary service consulted for additional management/recommendations.
When I saw the patient she was in bed, in no acute distress. Still endorsing a dry cough + SOB with activity. She is on room air breathing comfortably. She says she feels a little better compared to when she was first admitted. Of note, she last
saw [facility] about 2 years ago but stopped seeing them as there was no additional interventions that they could offer that we are not offering here at [facility] Regarding her history of CHF (suspected given lower extremity swelling), she still
sees [facility] with Dr. Washington. She continues to use her Lasix as well as her inhalers. She currently denies chest pain, headache, abdominal pain, fevers or chills.
Patient follows with us in the office and sees Dr. Kaiser with last office visit on 07/16/2023. Patient is prescribed Trelegy 200mcg and azithromycin 3 times weekly. Patient takes Nucala for asthma and also takes Dupixent for atopic dermatitis.
She actually says that the Dupixent helps her breathing as well and that she was taking Nucala before she started the Dupixent. She has been evaluated at [facility] in the past and has also seen cardiology specialist of
[place]. She previously used to be on chronic prednisone at 2.5 mg daily but as of this last office visit with us, she has been off of chronic steroids.
PMHx: Very severe COPD due to asthma in setting of centrilobular emphysema on nucala & chronic prednisone with azithromycin TIW, atopic dermatitis on dupixent, chronic hypoxemic respiratory failure on home oxygen (wears 2L/min as needed, and 2L/m
HS), ISHMAEL intolerant to CPAP, GERD with reflux esophagitis, hypothyroidism, Hx of Washington esophagus, hx of torn rotator cuff, HFpEF
PSHx: , rotator cuff repair (May 2020), cholecystectomy (03/2023)
Past Medical History
Past Medical History: Other (Above as per HPI)
Past Surgical History: Other (Above as per HPI)
Social History
Tobacco: Former Smoker (Quit 2010, ~33-wmfr-zxcm history)
Alcohol: None
Drug: None
Personal:
Living: With Family
Employment: Retired
Family History
Family History: Reviewed & Not Pertinent
Allergies / Home Medications
Allergies
Allergy/AdvReac Type Severity Reaction Status Date / Time
latex Allergy Rash Verified 11/19/23 13:44
levofloxacin [From Levaquin] Allergy Achilles Verified 11/19/23 13:44
Tendonitis
Penicillins Allergy Full-body Verified 11/19/23 13:44
rash;
tolerated
ceftriaxone
and
cefepime
Home Medications
�Medication �Instructions �Recorded �Confirmed �Last Taken �Type
montelukast 10 mg tablet 10 mg PO DAILY Lung/breathing 07/12/11 11/19/23 11/19/23 History
issues
levothyroxine 137 mcg tablet 137 mcg PO DAILY Thyroid 06/09/18 11/19/23 11/19/23 History
(Synthroid)
dupilumab 300 mg/2 mL subcutaneous 300 mg SQ Q2W asthma/atopic 05/11/19 11/19/23 11/18/23 History
syringe (Dupixent) dermatitis
atorvastatin 10 mg tablet 10 mg PO DAILY High cholesterol 04/29/21 11/19/23 11/19/23 History
metformin 500 mg tablet,extended 500 mg PO BID Diabetes 04/15/22 11/19/23 11/19/23 History
release 24 hr
multivitamin 1 tab PO DAILY Supplement 04/15/22 11/19/23 11/19/23 History
guaifenesin 600 mg tablet, 600 mg PO DAILY Congestion 07/15/22 11/19/23 11/19/23 History
extended release 12 hr (Mucinex)
furosemide 20 mg tablet (Lasix) 20 mg PO DAILY Fluid 09/18/22 11/19/23 11/19/23 History
Retention/Swelling
prednisone 20 mg tablet 40 mg PO DAILY 10/23/23 11/19/23 11/19/23 History
albuterol sulfate 2.5 mg/3 mL 2.5 mg inhalation R Q6HPRN PRN 11/19/23 11/19/23 11/19/23 History
(0.083 %) solution for nebulization sob/wheezing
albuterol sulfate 90 mcg/actuation 2 puff inhalation R Q4HPRN PRN sob 11/19/23 11/19/23 1 Day Ago History
aerosol inhaler ~11/18/23
budesonide 0.5 mg/2 mL suspension 0.5 mg inhalation R BID 11/19/23 11/19/23 11/19/23 History
for nebulization
cholecalciferol (vitamin D3) 25 25 mcg PO DAILY 11/19/23 11/19/23 11/19/23 History
mcg (1,000 unit) tablet
fluticasone fur. 200 mcg-umeclid 1 inh inhalation R DAILY 11/19/23 11/19/23 11/19/23 History
62.5 mcg-vilant 25 mcg
inhalat.powder (Trelegy Ellipta)
mepolizumab 100 mg/mL subcutaneous 100 mg SC QMONTH 11/19/23 11/19/23 1 Month Ago History
auto-injector (Nucala) ~10/19/23
Review of Systems
-
History Source: Patient
All other systems: Negative unless noted
Vitals / Labs / Diagnostic Testing
Vital Signs
Temp Pulse Resp BP Pulse Ox
97.7 F 82 18 113/68 95
11/20/23 07:40 11/20/23 07:55 11/20/23 07:40 11/20/23 07:55 11/20/23 07:40
Lab Data
11/20/23 05:06
11/20/23 05:06
Laboratory Results
11/20/23
05:06
PT 12.8
INR 0.97
APTT 23.2 L
Microbiology
11/20/23 05:02 Nasal Swab Influenza Types A & B (DANIEL) - Final
Negative for Influenza A & B, NAAT
Negative results must be combined with clinical observations
and patient history.
Nucleic Acid Amplification test (NAAT)performed on the
[employer] platform.
11/19/23 14:45 Nasal Swab Influenza Types A & B (DANIEL) - Final
Negative for Influenza A & B, NAAT
Negative results must be combined with clinical observations
and patient history.
Nucleic Acid Amplification test (NAAT)performed on the
[employer] NOW platform.
Diagnostic Testing:
Physical Exam
-
HEENT: Normocephalic and Anicteric
Cardiovascular: S1/S2 and Peripheral Edema (Negative)
Respiratory: Wheeze (Bilaterally), Rales (Negative) and Rhonchi (Negative)
GI: Soft, Non Distended, Non Tender and Normal Bowel Sounds
Neurology: AO x 3 and Tremors (Negative)
Skin: Warm and Dry
General: Comfortable, Chills (Negative) and Sweats (Negative)
Assessment
-
Assessment: 68-year-old female former tobacco smoker (~40-PY Hx, quit 2010) with a past medical history of very severe COPD due to unremitting asthma on Nucala, centrilobular emphysema, atopic dermatitis on Dupixent, ISHMAEL intolerant to CPAP, GERD,
hypothyroidism, and chronic hypoxemic respiratory failure on home oxygen who presents with shortness of breath. Patient started to develop SOB in the first few weeks of September and she was started on a prednisone taper on 10/07/2023 by our office, and
after finishing this she felt SOB again. She first came to our office again on 10/22/2023 and saw TRACY Seo. Repeat prednisone taper was started over 18 days starting at 60 mg. Unfortunately she came back into the office again on 11/04
again with SOB and was placed back on prednisone 40 mg daily for 2 weeks. She also was on albuterol via nebulizer QID + budesonide BID, in addition to her maintenance inhaler. She returned to the office visit on 11/18 and was sent to the ER given
continued SOB despite multiple courses of prednisone. In triage she was saturating 98% on room air, breathing at 16 breaths/min, heart rate 92, afebrile to 99.5 �F and BP 115/58. Labs showed leukocytosis to 11.8, glucose 208, and was COVID antigen
negative. Flu swab A/B was negative. CXR shows no active cardiopulmonary disease. She was given Decadron, doxycycline and DuoNebs and admitted to the hospitalist service with pulmonary service consulted for additional management/recommendations.
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
ISHMAEL intolerant to CPAP, GERD, hypothyroidism, Hx of Washington's esophagus, hx of torn rotator cuff, chronic cholecystitis s/p cholecystectomy
Impression:
#COPD exacerbation
#Very severe COPD (post-BD FEV1: 0.8L, DLco: 20% via PFT from 08/2022) due to combined emphysema and unremitting asthma on biologic therapy, on azithro TIW
#ISHMAEL intolerant to CPAP
#Former tobacco use disorder (Smoked 1 PPD X 39 years, quit in 2010)
#Atopic dermatitis on dupixent
#Chronic hypoxemic respiratory failure on supplemental O2
#Hypothyroidism
#GERD with Washington's esophagus
#Chronic HFpEF
Plan:
- Continue systemic steroids and wean as tolerated - currently on Decadron 4 mg IV q8hr
- Continue budesonide 0.5 mg BID + nebulized albuterol QID
- Symbicort 160mcg + spiriva respimat 2.5mcg/act and albuterol QID
- prn nebulized bronchodilators for in-between breakthrough symptoms
- Continue with mucolytics with mucinex and will start flutter valve
- Maintain SpO2 >88-94% with supplemental O2 as needed
- Incentive spirometer encouraged
- Considering she has a [id number] Hx of smoking, and she quit in 2010, she continues to qualify for lung cancer screening via LDCT chest until 2025. Last LDCT chest done on 09/09/2023 showing no pulmonary nodules. Continue follow up as an
outpatient with Dr. Kaiser.
- Resume Nucala + dupixent as an outpatient
- Depending on if we can successfully wean her fully off steroids, she may require a low dose daily prednisone (2.5-5mg) if it means it will keep her out of the hospital - we will address this in the office
- Trend WBC and fever curve
- Ok to continue zithromax mainly for anti-inflammatory effects - once 1.5g given, then resume 250mg TIW dosing
- Hold off on any additional Abx at this time as pt non-toxic appearing and does not have typical pneumonia symptoms
- Given her Hx of HFpEF, monitor volume status, trend UOP and continue her home dose of lasix
- Replete electrolytes with K>4, Mg>2
- Maintain euglycemia with goal BG >100 and <180
- DVT ppx
Pulmonary service will continue to follow along. Once discharged we will set up outpatient follow-up with Dr. Kaiser.
Total time spent today was 55 minutes for this encounter. Time includes reviewing laboratory test/imaging results, reviewing pertinent medical records, obtaining and reviewing medical history, performing an appropriate exam, ordering medications,
tests and procedures. Time also includes documentation of this encounter, coordinating patient care and communicating with other healthcare professionals. Total time does not include separately billed tests performed on this date of service.
Data:
CXR 11-19-2023: No active cardiopulmonary disease; Mild cardiomegaly
[2023-11-20] MEDS: SPIRIVA RESPIMAT 2.5 MCG INH (10:02)
[2023-11-20] MEDS: SYMBICORT 160/4.5 MCG INHALER INH (10:02)
[2023-11-20 10:07] LABS: Glycohemoglobin (HgbA1c) 6.5 % (4.0-5.6)
[2023-11-20] MEDS: VENTOLIN NEBULES 2.5 MG INH ×3 (11:05→19:36)
[2023-11-20 11:47] LABS: Glucose - Point of Care 150 mg/dl (70-99)
--- NOTE | 2023-11-20 15:14 | CM ---
Addendum entered by Clotilde Romero 11/20/23 15:16:
IMM given to patient to sign when she was able to review.
Original Note:
Patient seen at bedside with physician and residents. Patient states that she lives with her in a 2 story home with no DME. Patient PCP is Dr. Cruz and she uses [facility] in [place]. Patient has home O2 from [employer] and uses 2 liters at
home. Patient plan is home with no needs. CM will continue to follow for discharge planning needs.
Plan; home with no needs.
[2023-11-20 15:31] VITALS: BP 121/57
[2023-11-20 16:35] LABS: Glucose - Point of Care 270 mg/dl (70-99)
[2023-11-20] MEDS: NOVOLOG FLEXPEN-LOW RESISTANCE 3 UNITS SC (16:53)
[2023-11-20] MEDS: LIPITOR 10 MG PO (17:30)
[2023-11-20] MEDS: LOVENOX 40 MG SC (17:30)
[2023-11-20] MEDS: SYMBICORT 160/4.5 MCG INHALER 2 PUFF INH (19:36)
[2023-11-20] MEDS: MUCINEX 1200 MG PO (20:37)
[2023-11-20] MEDS: ZITHROMAX 500 MG PO (20:37)
[2023-11-20 21:29] LABS: Glucose - Point of Care 199 mg/dl (70-99)
[2023-11-20 23:54] VITALS: BP 128/66
[2023-11-21] MEDS: DECADRON 4 MG IV ×2 (01:56→11:16)
[2023-11-21] MEDS: SYNTHROID 137 MCG PO (06:06)
[2023-11-21 07:19] LABS: Glucose - Point of Care 159 mg/dl (70-99)
[2023-11-21 07:26] LABS: % Basophils 0.1 % (0-2); % Immature Granulocytes 0.6 % (0-0.5); % Lymphocytes 5.2 % (20.5-51.1); % Monocytes 3.5 % (1.7-9.3); % Neutrophils 90.6 % (42.2-75.2); Absolute Immature Granulocytes 0.1 10^3/uL (0-0.05); Absolute Lymphocytes 0.6 10^3/uL (1.2-3.4); Absolute Monocytes 0.4 10^3/uL (0.1-0.6); Absolute Neutrophils 10.9 10^3/uL (1.4-6.5); Hematocrit 38.8 % (37.0-47.0); Hemoglobin 12.1 g/dL (12.0-16.0); Mean Corp Hgb Conc. 31.2 g/dL (33.0-37.0); Mean Corpuscular Hgb 28.1 pg (27.0-31.0); Mean Platelet Volume 11.2 fL (7.4-10.4); Nucleated Red Blood Cells % 0 %; Platelet Count 250 10^3/uL (130-400); Red Blood Cell Count 4.31 10^6/uL (4.20-5.40); Red Cell Dist. Width 14.3 % (11.5-14.5)
[2023-11-21] MEDS: SPIRIVA RESPIMAT 2.5 MCG 2 PUFF INH (07:28)
[2023-11-21] MEDS: SYMBICORT 160/4.5 MCG INHALER 2 PUFF INH (07:28)
[2023-11-21] MEDS: PULMICORT 0.5 MG INH (07:28)
[2023-11-21] MEDS: VENTOLIN NEBULES 2.5 MG INH ×2 (07:28→11:27)
[2023-11-21 07:30] VITALS: BP 122/57
[2023-11-21 07:38] LABS: Blood Urea Nitrogen 15 mg/dl (7-17); Calcium 9.5 mg/dl (8.4-10.2); Carbon Dioxide 27 mmol/L (22-30); Chloride 102 mmol/L (98-107); Estimated Creatinine Clearance 88 ml/min; Glucose 135 mg/dl (70-99); Potassium 4.6 mmol/L (3.5-5.1); Sodium 136 mmol/L (135-145); eGFR > 60.00
--- NOTE | 2023-11-21 07:52 | W.PN.HOSP.TC ---
Addendum entered and electronically signed by Tashia Spears MD 11/21/23 19:38:
pt seen and examined independently--agree with plan as set forth by Dr. Hood
GENERAL: well developed, well nourished, female in mild resp distress
HEENT: NC/AT--room air
HEART: regular rate and rhythm, +S1, +S2
LUNGS : decreased breath sounds bilaterally
ABDOM: soft, nontender, nondistended, + bowel sounds
EXT: no cyanosis, clubbing, or edema
NEUROLOGIC: grossly intact
ok for d/c with resumption of her outpt inhalers
Acute hypoxic respiratory failure--Secondary to COPD exacerbation (for the last 3 weeks) with increased oxygen requirements--Patient known to Dr. Kaiser. Recent steroid treatment was not effective--CXR unremarkable. Pneumonia less likely---Start
Decadron 4 mg every 8 hours, change to prednisone 50 mg daily with taper at d/c---Continue albuterol, Trelegy, DuoNeb, Mucinex, Pulmicort and montelukast---Maintain O2> 92%, MAP> 65--Hold Nucala---Hold Dupixent---apprec Pulmonary--Azithromycin 500
mg daily then back to three times weekly---Low-dose CT outpatient due to smoking history--PT/OT.
Type 2 diabetes--Continue metformin--Sliding scale insulin--Accu-Cheks.
Hypercholesterolemia--Continue atorvastatin
Heart failure with preserved ejection fraction without exacerbation---Continue furosemide.
Hypothyroidism--Continue levothyroxine
DVT prophylaxis: Lovenox
CODE STATUS: Full code
Original Note:
Today's Communication/Plan
-
Discontinue Decadron and start prednisone taper
Discharge planning.
Assessment / Plan
Assessment / Plan
Assessment: 68-year old female with past medical history of COPD, eosinophilic asthma, pancreatitis, type II diabetes, hypothyroidism, centrilobular emphysema, obstructive sleep apnea, GERD, who presents to ED with complaint of worsening
shortness of breath on exertion and wheezing for the past month. She also reports chest tightness, occasional cough, with minimal sputum production.
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
COPD
Eosinophilic asthma
Pancreatitis
Type 2 diabetes
Hypothyroidism
Central lobar emphysema
Obstructive sleep apnea
GERD
Impression/plan:
Acute hypoxic respiratory failure.
-Secondary to COPD exacerbation with increased oxygen requirements, [id number] history of smoking, quit 2010.
-O2 supplementation weaned off, patient saturating at 93% on room air s/p treatment with nebulized albuterol QID, Symbicort 160 mcg, Mucinex, Pulmicort 0.5 mg BID, and Spiriva 160/4.5 mcg, montelukast 10 mg daily, as needed nebulized bronchodilators.
-Patient known to Dr. Kaiser. CXR unremarkable.
-Incentive spirometry.
-Discontinue Decadron 4 mg Q8hrs, start prednisone taper with discharge planning.
-Maintain O2> 92% with PRN O2 supplementation, MAP> 65.
-Hold home prednisone, Nucala, and Dupixent
-Pulmonary assessment and recs appreciated.
-Continue azithromycin 500 mg daily.
-Plan to wean off steroids tomorrow and consider starting 2.5 to 5 mg regular
-Low-dose CT 08/13/2023 reports no acute disease, chest with mild right upper lobe lesion bronchiolitis patient.
-PT/OT.
Type 2 diabetes
-HbA1c 6.5.
-Continue metformin
-Sliding scale insulin
-Accu-Cheks.
-Blood glucose goal 140 to 180 mg/DL
Hypercholesterolemia
-Continue atorvastatin
Heart failure with preserved ejection fraction
-Weight up from June 2023, was 76.3 kg, currently trending back down to 80.1 kg.
-Continue furosemide.
-Monitor daily weights, I's and O appreciated.
Hypothyroidism
-Continue levothyroxine
DVT prophylaxis: Lovenox
CODE STATUS: Full code
Anticipated Discharge: Today
Subjective/Interval History
-
Date of Service: November 21, 2023
Objective Data
-
Labs:
Laboratory Results
11/21/23
06:27
WBC 12.0 H
Hgb 12.1
Hct 38.8
Plt Count 250
Sodium 136
Potassium 4.6
Chloride 102
Carbon Dioxide 27
BUN 15
Creatinine 0.5 L
Glucose 135 H
Calcium 9.5
Vital Signs:
T.max 24 HRS
11/20/23
23:54
Temp 98.4 F
Vital Signs
Temp Pulse Resp BP Pulse Ox
98.4 F 75 18 128/66 96
11/20/23 23:54 11/21/23 07:33 11/21/23 07:33 11/20/23 23:54 11/21/23 07:33
I&O
11/20/23 11/21/23 11/22/23
06:59 06:59 06:59
Intake Total 480 / 480 1890 / 1890
Output Total 300 / 300
Balance 480 / 480 1590 / 1590
Review of Systems
-
History Source: Patient
All other systems: Not reviewed unless documented
Constitutional: Reports No Symptoms; Denies Fever or Chills
EENT: Reports No Symptoms Reported; Denies Sore Throat
Respiratory: Reports Cough (Mild intermittent cough) and Wheezing; Denies Trouble Breathing
Cardiac: Reports No Symptoms; Denies Chest Pain or Palpitations
Abdomen/GI: Reports No Symptoms; Denies Abdominal Pain, Nausea, Vomiting or Constipated
Genitourinary: Reports No Symptoms
Musculoskeletal: Reports No Symptoms
Skin: Reports No Symptoms
Neuro: Reports No Symptoms
Physical Exam
-
General: No Apparent Distress, Comfortable and Conversant; Negative Fever or Chills
HEENT: Atraumatic and Moist Mucous Membranes
Respiratory: Wheezes and Non Labored Respirations; Negative Rales or Crackles
Cardiac: Regular Rhythm, S1/S2 and Irregular Rhythm; Negative Murmur or Rub
GI: Soft, Nontender, Nondistended and Normal Bowel Sounds
Musculoskeletal: No Clubbing, No Cyanosis and No Edema
Neuro: Awake, Alert, Oriented, AO x 3 and No Motor Deficits
Psych: Calm and Intact Judgement/Insight
Data Reviewed
-
Diagnostic Radiology: Image personally visualized and interpreted and Report Reviewed by me
Labs: Labs Reviewed by me and Discussed with Physician
Old Records: Reviewed
[2023-11-21] MEDS: MUCINEX 1200 MG PO (08:00)
[2023-11-21] MEDS: LIPITOR 10 MG PO (08:00)
[2023-11-21] MEDS: GLUCOPHAGE XR EXTENDED RELEASE 500 MG PO (08:01)
[2023-11-21] MEDS: LASIX 20 MG PO (08:01)
[2023-11-21] MEDS: SINGULAIR 10 MG PO (08:01)
[2023-11-21] MEDS: THERAGRAN 1 TABLET PO (08:01)
[2023-11-21] MEDS: VITAMIN D3 (cholecalciferol) 25 MCG PO (08:01)
[2023-11-21] MEDS: NOVOLOG FLEXPEN-LOW RESISTANCE 1 UNITS SC (08:01)
--- NOTE | 2023-11-21 08:04 | W.DCSUMMARY ---
Addendum entered and electronically signed by Tashia Spears MD 11/21/23 19:53:
Fully read and agree with summary set forth by Dr. Hood.
Pt is sable for d/c with tapering prednisone dosing. Once she gets to 20 mg daily, she should stay on that dose until she is seen by pulmonary. If she sees pulmonary first, then they can further direct the prednisone.
Original Note:
Discharge Summary
Discharge Data
Date of Admission: 11/19/23
Date of Discharge: 11/21/23
-
Pending Results: No
Hospital Course
Disposition : Home
Primary care physician : Gayathri Will
Principal Discharge diagnosis : Acute hypoxic respiratory failure, COPD exacerbation
Chronic Discharge diagnosis : Type 2 diabetes, hypercholesterolemia, heart failure with preserved ejection fraction with exacerbation, hypothyroidism, chronic Pancreatitis, history of celiac asthma, centrilobular emphysema, ISHMAEL, GERD.
Hospital Course : 68-year old female with past medical history of COPD, eosinophilic asthma, pancreatitis, type II diabetes, hypothyroidism, centrilobular emphysema, obstructive sleep apnea, GERD, known to Dr. Kaiser, who presents to ED with
complaint of worsening shortness of breath on exertion and wheezing for the past month. She also reports chest tightness, occasional cough, with minimal sputum production. She was recently seen by her esthetician facialist, treated with 40 mg prednisone
daily without improvement of symptoms. She reported using portable oxygen with concentrator at home only at night however, she has increased use of oxygen during the day prompting her presentation. While in the ED, her chest x-ray showed mild
cardiomegaly but no active cardiopulmonary disease. Her labs showed leukocytosis of 11.8, glucose 208, and COVID antigen negative. Flu swab A/B was negative. She was started on IV Decadron, doxycycline and DuoNebs and was admitted for further
evaluation and management.
During the course of her admission, patient was seen in consultation with pulmonology, her Nucala and Dupixent were both held and she was started on azithromycin. She subsequently improved after 3 days stay in the hospital and was assessed by
pulmonology during her stay. Patient is now stable for discharge to home and has been instructed to follow-up with her family care physician, and pulmonology in less than 1 week. She was also discharged on azithromycin 1 tablet 3 times weekly and
a steroid taper. She was also instructed to continue prednisone at 20 mg until she is able to see her esthetician facialist.
Discharge Plan
-
Patient Disposition: Home (Routine Discharge)
Discharge Diagnosis/Procedures: COPD exacerbation, eosinophilic asthma, type 2 diabetes, hypothyroidism, centrilobular emphysema, GERD, obstructive sleep apnea, chronic pancreatitis, hypercholesterolemia, HFpEF, hypothyroidism
Condition: Good
Diet: Low Cholesterol and Diabetic, Carb Controlled
Activity: As tolerated
Driving Restrictions: As prior to admission
Bathing Restrictions: None
Referrals:
Alberto Serrano MD [Active] - in less than 1 week
Gayathri Tena MD [Family Provider] - in less than 1 week
Additional Discharge Medication Instructions: Start azithromycin 250 mg tablet by mouth, 3 times weekly. Start prednisone 50 mg taper and follow the instructions. When you get to 20 mg daily dose, stay on that dose until you see your
esthetician facialist.
Prescriptions:
New
prednisone 10 mg Tablet
See Rx Instructions .ROUTE .COMPLEX Qty: 45 0RF
Rx Instructions:
Take By Mouth:
50mg daily x3days,40mg daily x3days,
30mg daily x3days, 20mg daily x3days,
10mg daily x3days
azithromycin 250 mg Tablet
250 mg PO .TIW Qty: 12 0RF
Continued
montelukast 10 MG tablet
10 mg PO DAILY
levothyroxine [Synthroid] 137 MCG tablet
137 mcg PO DAILY
Dupixent Syringe 300 MG/2 ML syringe
300 mg SQ Q2W
atorvastatin 10 MG tablet
10 mg PO DAILY
multivitamin Tablet
1 tab PO DAILY
metformin 500 mg Tablet Extended Release 24 Hr
500 mg PO BID
guaifenesin [Mucinex] 600 mg tablet extended release 12hr
600 mg PO DAILY
furosemide [Lasix] 20 mg Tablet
20 mg PO DAILY
prednisone 20 mg Tablet
40 mg PO DAILY
albuterol sulfate 2.5 mg /3 mL (0.083 %) Solution For Nebulization
2.5 mg INHALATION R Q6HPRN PRN (Reason: sob/wheezing)
budesonide 0.5 mg/2 mL Suspension For Nebulization
0.5 mg INHALATION R BID
albuterol sulfate 90 mcg/actuation Hfa Aerosol Inhaler
2 puff INHALATION R Q4HPRN PRN (Reason: sob)
cholecalciferol (vitamin D3) 25 mcg (1,000 unit) Tablet
25 mcg PO DAILY
Nucala 100 mg/mL Auto-Injector
100 mg SC QMONTH
Patient Comments:
11/19/2023, next dose due tomorrow (11/20/2023) per pt.
Trelegy Ellipta 200-62.5-25 mcg Blister With Device
1 inh INHALATION R DAILY
Discharge Orders:
Discharge Patient (As Directed); Ordered 11/21/23
Ordered By: Erik Hood
Discharge Date and Time
Discharge Date/Time: 11/21/23 13:21
Print Language: FRISIAN
--- NOTE | 2023-11-21 10:46 | PTCARENOTE ---
Pt. weaned off O2, pt. ambulated on RA , sats 93-97%.
[2023-11-21] MEDS: DELTASONE 50 MG PO (11:16)
[2023-11-21 11:25] VITALS: BP 157/71
[2023-11-21 11:58] LABS: Glucose - Point of Care 112 mg/dl (70-99)
[2023-11-21] MEDS: NOVOLOG FLEXPEN-LOW RESISTANCE SC (12:02)
== END 2023-11-21 13:21 | disposition home or self-care (01) | DRG 190 ==
LOC: 4 EAST ACU 19:37
PROVIDERS: Emergency Medicine; Physician Assistant; Student in an Organized Health Care Education/Training Program; ADMITTING PHYSICIAN Internal Medicine; EMERGENCY PHYSICIAN Emergency Medicine; FAMILY PHYSICIAN Family Medicine; OTHER PHYSICIAN Internal Medicine Critical Care Medicine
DX: J43.2 Centrilobular emphysema (principal); J96.21 Acute and chronic respiratory failure with hypoxia; I50.32 Chronic diastolic (congestive) heart failure; J82.83 Eosinophilic asthma; K86.1 Other chronic pancreatitis; L20.9 Atopic dermatitis, unspecified; E03.9 Hypothyroidism, unspecified; G47.33 Obstructive sleep apnea (adult) (pediatric); K21.00 Gastro-esophageal reflux disease with esophagitis, without bleeding; E11.9 Type 2 diabetes mellitus without complications; K22.70 Barrett's esophagus without dysplasia; E78.00 Pure hypercholesterolemia, unspecified; Z87.891 Personal history of nicotine dependence; Z11.52 Encounter for screening for COVID-19; Z88.0 Allergy status to penicillin; Z88.1 Allergy status to other antibiotic agents; Z91.040 Latex allergy status; Z79.890 Hormone replacement therapy; Z79.84 Long term (current) use of oral hypoglycemic drugs; Z79.51 Long term (current) use of inhaled steroids; Z79.52 Long term (current) use of systemic steroids; Z99.81 Dependence on supplemental oxygen; Z90.49 Acquired absence of other specified parts of digestive tract
CPT/HCPCS: 71046; 80048; 80053; 82962; 83036; 85025; 85610; 85730; 87502; 87811; 93005; 94640; 97162; 97166; 99285

== ENCOUNTER 2023-11-24 14:25 | Outpatient (RCR) | payer MEDICARE, BC, SELFPAY ==
[2023-11-24 14:47] VITALS: BP 134/60
[2023-11-24] MEDS: NUCALA 1 MG SC (14:56)
== END 2023-11-25 11:16 | disposition home or self-care (01) ==
LOC: OID 14:25
PROVIDERS: ATTENDING PHYSICIAN Internal Medicine Critical Care Medicine; FAMILY PHYSICIAN Family Medicine
DX: J45.50 Severe persistent asthma, uncomplicated (principal); J45.30 Mild persistent asthma, uncomplicated (principal); J44.9 Chronic obstructive pulmonary disease, unspecified; R06.02 Shortness of breath; Z87.891 Personal history of nicotine dependence
CPT/HCPCS: 96372; J2182

== ENCOUNTER 2023-12-22 13:46 | Outpatient (RCR) | payer MEDICARE, BC, SELFPAY ==
[2023-12-22 14:07] VITALS: BP 124/61
[2023-12-22] MEDS: NUCALA 1 MG SC (14:22)
== END 2023-12-23 08:52 | disposition home or self-care (01) ==
LOC: OID 13:46
PROVIDERS: ATTENDING PHYSICIAN Internal Medicine Critical Care Medicine; FAMILY PHYSICIAN Family Medicine
DX: J45.50 Severe persistent asthma, uncomplicated (principal); J44.9 Chronic obstructive pulmonary disease, unspecified
CPT/HCPCS: 96372; J2182

== ENCOUNTER 2024-01-19 13:41 | Outpatient (RCR) | payer MEDICARE, BC, SELFPAY ==
[2024-01-19 13:50] VITALS: BP 120/53
[2024-01-19] MEDS: NUCALA 1 MG SC (14:03)
== END 2024-01-20 13:30 | disposition home or self-care (01) ==
LOC: OID 13:41
PROVIDERS: ATTENDING PHYSICIAN Internal Medicine Critical Care Medicine; FAMILY PHYSICIAN Family Medicine
DX: J45.50 Severe persistent asthma, uncomplicated (principal); J44.89 Other specified chronic obstructive pulmonary disease; G47.33 Obstructive sleep apnea (adult) (pediatric); Z87.891 Personal history of nicotine dependence
CPT/HCPCS: 96372; J2182

== ENCOUNTER 2024-02-16 13:48 | Outpatient (RCR) | payer MEDICARE, BC, SELFPAY ==
[2024-02-16 13:54] VITALS: BP 138/68
[2024-02-16] MEDS: NUCALA 1 MG SC (14:03)
== END 2024-02-17 09:26 | disposition home or self-care (01) ==
LOC: OID 13:48
PROVIDERS: ATTENDING PHYSICIAN Internal Medicine Critical Care Medicine; FAMILY PHYSICIAN Family Medicine
DX: J44.9 Chronic obstructive pulmonary disease, unspecified (principal)
CPT/HCPCS: 96372; J2182

== ENCOUNTER 2024-03-15 14:29 | Outpatient (RCR) | payer MEDICARE, BC, SELFPAY ==
[2024-03-15 14:47] VITALS: BP 116/72
[2024-03-15] MEDS: NUCALA 1 MG SC (15:06)
== END 2024-03-16 08:47 | disposition home or self-care (01) ==
LOC: OID 14:29
PROVIDERS: ATTENDING PHYSICIAN Internal Medicine Critical Care Medicine; FAMILY PHYSICIAN Family Medicine
DX: J45.50 Severe persistent asthma, uncomplicated (principal); J44.9 Chronic obstructive pulmonary disease, unspecified
CPT/HCPCS: 96372; J2182

== ENCOUNTER 2024-04-12 14:32 | Outpatient (RCR) | payer MEDICARE, BC, SELFPAY ==
[2024-04-12 14:47] VITALS: BP 129/60
[2024-04-12] MEDS: NUCALA 1 MG SC (14:53)
== END 2024-04-13 09:41 | disposition home or self-care (01) ==
LOC: OID 14:32
PROVIDERS: ATTENDING PHYSICIAN Internal Medicine Critical Care Medicine; FAMILY PHYSICIAN Family Medicine
DX: J45.50 Severe persistent asthma, uncomplicated (principal); J44.9 Chronic obstructive pulmonary disease, unspecified; Z87.891 Personal history of nicotine dependence
CPT/HCPCS: 96372; J2182

== ENCOUNTER 2024-05-10 14:33 | Outpatient (RCR) | payer MEDICARE, BC, SELFPAY ==
[2024-05-10 14:44] VITALS: BP 133/51
[2024-05-10] MEDS: NUCALA 1 MG SC (14:49)
== END 2024-05-11 09:22 | disposition home or self-care (01) ==
LOC: OID 14:33
PROVIDERS: ATTENDING PHYSICIAN Internal Medicine Critical Care Medicine; FAMILY PHYSICIAN Family Medicine
DX: J45.50 Severe persistent asthma, uncomplicated (principal); J44.9 Chronic obstructive pulmonary disease, unspecified
CPT/HCPCS: 96372; J2182

== ENCOUNTER 2024-06-07 14:27 | Outpatient (RCR) | payer MEDICARE, BC, SELFPAY ==
[2024-06-07 14:43] VITALS: BP 130/63
[2024-06-07] MEDS: NUCALA 1 MG SC (14:51)
== END 2024-06-30 14:34 | disposition home or self-care (01) ==
LOC: OID 14:27
PROVIDERS: ATTENDING PHYSICIAN Internal Medicine Critical Care Medicine; FAMILY PHYSICIAN Family Medicine
DX: J45.50 Severe persistent asthma, uncomplicated (principal); J44.9 Chronic obstructive pulmonary disease, unspecified
CPT/HCPCS: 96372; J2182

== ENCOUNTER 2024-07-05 13:46 | Outpatient (RCR) | payer MEDICARE, BC, SELFPAY ==
[2024-07-05 14:05] VITALS: BP 107/48
[2024-07-05] MEDS: NUCALA 1 MG SC (14:11)
== END 2024-07-06 12:47 | disposition home or self-care (01) ==
LOC: OID 13:46
PROVIDERS: ATTENDING PHYSICIAN Internal Medicine Critical Care Medicine; FAMILY PHYSICIAN Family Medicine
DX: J45.50 Severe persistent asthma, uncomplicated (principal); J44.9 Chronic obstructive pulmonary disease, unspecified; Z87.891 Personal history of nicotine dependence
CPT/HCPCS: 96372; J2182

== ENCOUNTER 2024-08-02 13:40 | Outpatient (RCR) | payer MEDICARE, BC, SELFPAY ==
[2024-08-02 13:46] VITALS: BP 123/62
[2024-08-02] MEDS: NUCALA 1 MG SC (13:57)
== END 2024-08-03 08:37 | disposition home or self-care (01) ==
LOC: OID 13:40
PROVIDERS: ATTENDING PHYSICIAN Internal Medicine Critical Care Medicine; FAMILY PHYSICIAN Family Medicine
DX: J45.50 Severe persistent asthma, uncomplicated (principal); J44.9 Chronic obstructive pulmonary disease, unspecified
CPT/HCPCS: 96372; J2182

== ENCOUNTER → 2024-09-12 09:54 | Outpatient (REF) | payer MEDICARE, BC, SELFPAY | LOC: HWRAD 09:54 | PROVIDERS: ATTENDING PHYSICIAN Internal Medicine Critical Care Medicine; FAMILY PHYSICIAN Family Medicine | DX: Z87.891 Personal history of nicotine dependence (principal) | CPT/HCPCS: 71271 ==

== ENCOUNTER 2024-09-27 13:45 | Outpatient (RCR) | payer MEDICARE, BC, SELFPAY ==
[2024-08-30 14:49] VITALS: BP 125/60
[2024-08-30] MEDS: NUCALA 1 MG SC (15:06)
[2024-09-27 13:50] VITALS: BP 102/74
[2024-09-27] MEDS: NUCALA 1 MG SC (14:08)
== END 2024-09-28 08:47 | disposition home or self-care (01) ==
LOC: OID 13:45
PROVIDERS: ATTENDING PHYSICIAN Internal Medicine Critical Care Medicine; FAMILY PHYSICIAN Family Medicine
DX: J45.40 Moderate persistent asthma, uncomplicated (principal); J44.9 Chronic obstructive pulmonary disease, unspecified
CPT/HCPCS: 96372; J2182

== ENCOUNTER → 2024-10-05 08:34 | Emergency (ER) | payer MEDICARE, BC, SELFPAY ==
[2024-10-05 08:37] VITALS: BP 130/96
[2024-10-05 08:49] VITALS: BP 119/79
[2024-10-05 08:51] VITALS: BMI 28.2
[2024-10-05 09:00] VITALS: BP 109/66
[2024-10-05] MEDS: MAALOX 50 PO (09:01)
[2024-10-05 09:05] LABS: % Basophils 0.6 % (0-2); % Eosinophils 0.4 % (0-6); % Immature Granulocytes 0.5 % (0-0.5); % Lymphocytes 17.5 % (20.5-51.1); % Monocytes 8.2 % (1.7-9.3); % Neutrophils 72.8 % (42.2-75.2); Absolute Basophils 0.1 10^3/uL (0-0.2); Absolute Lymphocytes 1.5 10^3/uL (1.2-3.4); Absolute Monocytes 0.7 10^3/uL (0.1-0.6); Absolute Neutrophils 6.2 10^3/uL (1.4-6.5); Hematocrit 41.6 % (37.0-47.0); Hemoglobin 13.8 g/dL (12.0-16.0); Mean Corp Hgb Conc. 33.2 g/dL (33.0-37.0); Mean Corpuscular Hgb 28.8 pg (27.0-31.0); Mean Corpuscular Volume 86.7 fL (81.0-99.0); Mean Platelet Volume 10.7 fL (7.4-10.4); Nucleated Red Blood Cells % 0 %; Platelet Count 274 10^3/uL (130-400); Red Cell Dist. Width 13.2 % (11.5-14.5); White Blood Cell Count 8.5 10^3/uL (4.8-10.8)
--- NOTE | 2024-10-05 09:15 | ED.GENMED ---
History of Present Illness
General
Chief Complaint: Abdominal Pain
Time Seen by Provider: 10/05/24 08:40
History of Present Illness
History of Present Illness:
69-year-old female with history of COPD on chronic oxygen, GERD, vbs-oozsssi-icwectgdt diabetes, and [place]'s esophagus presents to the emergency department for evaluation of mid chest and upper abdominal pain that has been ongoing for the past 2
weeks. She states that she saw her GI doctor as an outpatient and is scheduled for an EGD in 2 days. She notes that the symptoms feel similar to 'heartburn'. She has not tried any vyna-juq-rincvtt acid reducing medications and was advised against
using these by her GI doctor. She does report increased shortness of breath during this time as well but she feels this is due to pain. No fevers or chills. She does not think that she was treated with any steroids prior to the onset of the
symptoms
Past History
Past History
ED Past Medical History: Asthma, COPD, GERD, Hypothyroidism and Other (Acute pancreatitis November 2015. Gastritis, [place]'s esophagus)
ED Past Surgical History: Orthopedic
Patient has exhibited threatening behavior?: No
PSI?: No
Social History
Tobacco: Former smoker
Alcohol: Occasional
Drug: None
Personal:
Living: with family
Employment: Retired
Family History
Family History: Other; Negative Diabetes, Hypertension or CAD
Review of Systems
Review of Systems
Allergies reviewed?: Yes
All Other Systems: ROS reviewed and negative except as documented in HPI and ROS
Phy Exam
Physical Exam
Physical Exam:
GEN: Well appearing, NAD, WDWN
HEENT: Oral mucosa moist, no scleral icterus
Cardiac: Regular rate and rhythm, no murmur
Lung: No respiratory distress, no tachypnea, inspiratory and expiratory wheezes with prolonged expiratory phase heard throughout all lung garnica
Abdomen: Soft, grossly nontender to palpation
MSK: No gross deformity or injuries
Skin: Good color, no pallor or jaundice, no rashes
Neuro: AO x3, moves all extremities freely
Psych: Calm, cooperative
Course
Orders/Labs/Results
Orders:
Orders
10/05/24 08:39
Electrocardiogram (*1) Urgent
Reason for Study: Abdominal Pain
EKG- Treatment ONCE
10/05/24 08:53
Mag Hydrox/Al Hydrox/Simeth [Maalox] 30 ml Phenobarb/Hyoscy/Atropine/Scop [] 10 ml Viscous Lidocaine 2% [Xylocaine Viscous Cup] 10 ml PO NOW
CR Chest - 2 Views Urgent
Comment:
Reason For Exam: SOB
10/05/24 08:57
Complete Blood Count/With Diff Urgent
Comprehensive Metabolic Panel Urgent
Lipase Urgent
Comment: ADD
Troponin I Urgent
10/05/24 09:00
Mag Hydrox/Al Hydrox/Simeth [Maalox] 30 ml .ROUTE .STK-MED ONE
Phenobarb/Hyoscy/Atropine/Scop [] 10 ml .ROUTE .STK-MED ONE
Viscous Lidocaine 2% [Xylocaine Viscous Cup] 15 ml .ROUTE .STK-MED ONE
10/05/24 09:20
Add On- LAB Urgent
Tests Added?: lipase
10/05/24 11:03
Ipratropium/Albuterol Sulfate [Duoneb] 3 ml INH R NOW ONE
Abnormal Lab Results
10/05/24
08:57
MPV 10.7 H fL
(7.4-10.4)
Absolute Monos (auto) 0.7 H 10^3/uL
(0.1-0.6)
Lymphocytes % 17.5 L %
(20.5-51.1)
BUN 6 L mg/dl
(7-17)
Creatinine 0.4 L mg/dL
(0.6-1.0)
Glucose 166 H mg/dl
(70-99)
Total Protein 6.1 L g/dl
(6.3-8.2)
Lipase 566 H U/L
(23-300)
10/05/24 08:57
10/05/24 08:57
Vital Signs
Initial and Last Documented VS:
Initial Vital Signs
Temp Pulse Resp BP Pulse Ox
98.1 F 84 18 130/96 98
10/05/24 08:37 10/05/24 08:37 10/05/24 08:37 10/05/24 08:37 10/05/24 08:37
Last Documented Vital Signs
Temp Pulse Resp BP Pulse Ox
98.1 F 74 18 121/64 98
10/05/24 08:37 10/05/24 09:15 10/05/24 09:15 10/05/24 11:47 10/05/24 11:47
MDM/Problems Addressed
MDM/Problems Addressed:
Patient's pain is most likely gastritis/uncontrolled GERD, her symptoms resolved after a GI cocktail was given in the ED. Labs are reassuring, doubt cardiac in nature. Given the persistence of symptoms over 2 weeks I doubt the mildly elevated
lipase correlates with her symptoms at this point. She has an EGD scheduled in 2 days, will start her on PPI and Carafate but advised her to hold this the morning of her procedure
*Critical Care Note
Total Time (30-74mins, 75-104mins- exclusive of procedures): Not Applicable
ED Attending Note
-
Portions of this chart may have been created with voice recognition software.� Occasional wrong word or��sound alike� substitutions may have occurred due to the inherent limitations of voice recognition software.
Discharge Plan
Departure
Patient Disposition: Home (Routine Discharge)
Date of Disposition: 10/05/24
Time of Disposition: 11:43
Patient with high blood pressure during this ER visit?: No
Discharge Problem:
Gastro-esophageal reflux
Instructions: Acid Reflux and GERD in Adults (DC)
Prescriptions:
New
sucralfate [Carafate] 100 mg/mL suspension
10 ml PO AC Qty: 300 0RF
pantoprazole 40 mg tablet,delayed release (DR/EC)
40 mg PO DAILY Qty: 20 0RF
No Action
montelukast 10 MG tablet
10 mg PO DAILY
levothyroxine [Synthroid] 137 MCG tablet
137 mcg PO DAILY
atorvastatin 10 MG tablet
10 mg PO DAILY
multivitamin Tablet
1 tab PO DAILY
metformin 500 mg Tablet Extended Release 24 Hr
500 mg PO BID
guaifenesin [Mucinex] 600 mg tablet extended release 12hr
600 mg PO DAILY
furosemide [Lasix] 20 mg Tablet
20 mg PO DAILY
albuterol sulfate 2.5 mg /3 mL (0.083 %) Solution For Nebulization
2.5 mg INHALATION R Q6HPRN PRN (Reason: sob/wheezing)
budesonide 0.5 mg/2 mL Suspension For Nebulization
0.5 mg INHALATION R BID
albuterol sulfate 90 mcg/actuation Hfa Aerosol Inhaler
2 puff INHALATION R Q4HPRN PRN (Reason: sob)
cholecalciferol (vitamin D3) 25 mcg (1,000 unit) Tablet
25 mcg PO DAILY
Nucala 100 mg/mL Auto-Injector
100 mg SC QMONTH
Patient Comments:
11/19/2023, next dose due tomorrow (11/20/2023) per pt.
azithromycin 250 mg tablet
250 mg PO .EVERYOTHERDAY
Referrals:
Gayathri Tena MD [Family Provider] -
Interventions
Interventions:
*Risk Screen - Suicide Last Done: 10/05/24 08:37
*General Assessment Last Done: 10/05/24 08:37
*Neglect/Abuse Screening Last Done: 10/05/24 08:37
*ED- Fall Risk Assessment Last Done: 10/05/24 12:10
*ED COVID-19 Vaccine History Last Done: 10/05/24 08:52
*Nursing Disposition Last Done: 10/05/24 12:10
XG-Tlwlnn-Gqojgvxiqo Assessment Last Done: 10/05/24 08:54
Discharge Date and Time
Print Language: SYRIAC
[2024-10-05 09:25] LABS: ALT (SGPT) 22 U/L (0-35); AST (SGOT) 22 U/L (14-36); Albumin 4.3 g/dl (3.5-5.0); Alkaline Phosphatase 98 U/L (38-126); Blood Urea Nitrogen 6 mg/dl (7-17); Calcium 9.3 mg/dl (8.4-10.2); Carbon Dioxide 26 mmol/L (22-30); Chloride 102 mmol/L (98-107); Estimated Creatinine Clearance 102 ml/min; Glucose 166 mg/dl (70-99); Sodium 137 mmol/L (135-145); Total Bilirubin 0.4 mg/dl (0.2-1.3); Total Protein 6.1 g/dl (6.3-8.2); eGFR > 60.00
[2024-10-05 09:35] LABS: Troponin I < 0.012 ng/ml
[2024-10-05 10:27] LABS: Lipase 566 U/L (23-300)
[2024-10-05] MEDS: DUONEB 3 ML INH (11:46)
[2024-10-05 11:47] VITALS: BP 121/64
== END | disposition home or self-care (01) ==
LOC: EMR 08:34
PROVIDERS: Physician Assistant; EMERGENCY PHYSICIAN Emergency Medicine; FAMILY PHYSICIAN Family Medicine
DX: K21.9 Gastro-esophageal reflux disease without esophagitis (principal); J44.89 Other specified chronic obstructive pulmonary disease; E11.9 Type 2 diabetes mellitus without complications; E03.9 Hypothyroidism, unspecified; Z87.19 Personal history of other diseases of the digestive system; Z87.891 Personal history of nicotine dependence; Z99.81 Dependence on supplemental oxygen
CPT/HCPCS: 99283; 94640; 71046; 80053; 83690; 84484; 85025; 93005

== ENCOUNTER 2024-10-25 13:40 | Outpatient (RCR) | payer MEDICARE, BC, SELFPAY ==
[2024-10-25 13:55] VITALS: BP 112/72
[2024-10-25] MEDS: NUCALA 1 MG SC (14:03)
== END 2024-10-26 11:18 | disposition home or self-care (01) ==
LOC: OID 13:40
PROVIDERS: ATTENDING PHYSICIAN Internal Medicine Critical Care Medicine; FAMILY PHYSICIAN Family Medicine
DX: J45.40 Moderate persistent asthma, uncomplicated (principal); J44.9 Chronic obstructive pulmonary disease, unspecified; Z87.891 Personal history of nicotine dependence
CPT/HCPCS: 96372; J2182

== ENCOUNTER 2024-11-22 13:40 | Outpatient (RCR) | payer MEDICARE, BC, SELFPAY ==
[2024-11-22 13:45] VITALS: BP 96/82
[2024-11-22] MEDS: NUCALA 1 MG SC (14:10)
== END 2024-11-23 10:10 | disposition home or self-care (01) ==
LOC: OID 13:40
PROVIDERS: ATTENDING PHYSICIAN Internal Medicine Critical Care Medicine; FAMILY PHYSICIAN Family Medicine
DX: J45.40 Moderate persistent asthma, uncomplicated (principal); J44.9 Chronic obstructive pulmonary disease, unspecified; Z87.891 Personal history of nicotine dependence
CPT/HCPCS: 96372; J2182

== ENCOUNTER 2024-12-20 13:42 | Outpatient (RCR) | payer MEDICARE, BC, SELFPAY ==
[2024-12-20 14:09] VITALS: BP 126/52
[2024-12-20] MEDS: NUCALA 1 MG SC (14:26)
== END 2024-12-21 10:20 | disposition home or self-care (01) ==
LOC: OID 13:42
PROVIDERS: ATTENDING PHYSICIAN Internal Medicine Critical Care Medicine; FAMILY PHYSICIAN Family Medicine
DX: J44.9 Chronic obstructive pulmonary disease, unspecified (principal)
CPT/HCPCS: 96372; J2182

== ENCOUNTER 2025-01-05 14:51 | Inpatient (IN) | payer MEDICARE, BC, SELFPAY ==
[2025-01-05] VITALS (7 sets, daily range): BP systolic 113–136; BP diastolic 62–87; BMI 27.7; BMI 26.5
--- NOTE | 2025-01-05 08:51 | ED.GENMED ---
History of Present Illness
General
Chief Complaint: Breathing Problem
Source: patient
Exam Limitations: none
Time Seen by Provider: 01/05/25 08:43
Nursing documentation reviewed up to this point in time: agreed with
History of Present Illness
History of Present Illness:
The patient is a 69-year-old female with history COPD on 3 L nasal cannula at home, diabetes who presents to the emergency department with a few days of chest tightness and worsening shortness of breath. Patient states symptoms have been ongoing
for the past 3 to 4 days and describes a tightness sensation in her chest, wheezing, and feeling more short of breath than her baseline. Shortness of breath is exacerbated with walking.
Patient states that she is on 3 L nasal cannula at night and as needed during the days. She did attempt to increase oxygen however did not notice any improvement.
Patient denies any associated fever, chills, productive cough, lower extremity edema.
[place] exacerb[place] her COPD.
Past History
Past History
ED Past Medical History: Asthma, COPD, GERD, Hypothyroidism and Other (Acute pancreatitis November 2015. Gastritis, [place]'s esophagus)
ED Past Surgical History: Orthopedic
Patient has exhibited threatening behavior?: No
PSI?: No
Social History
Tobacco: Former smoker
Alcohol: Occasional
Drug: None
Personal:
Living: with family
Employment: Retired
Family History
Family History: Other; Negative Diabetes, Hypertension or CAD
Review of Systems
Review of Systems
Allergies reviewed?: Yes
All Other Systems: ROS reviewed and negative except as documented in HPI and ROS
Phy Exam
Physical Exam
Physical Exam:
Vitals: Patient's vital signs are stable. Afebrile
General: Patient is chronically ill appearing
Skin: Warm and dry, no rashes or lesions
Head: Normocephalic, atraumatic
Eyes: Sclera nonicteric.
Throat: Protecting airway
Neck: Normal ROM, no cervical spine tenderness, no meningismus
Cardiac: Regular rate and rhythm, no murmurs.
Pulm: On 3 L O2 via nasal cannula. Diminished breath sounds bilaterally with expiratory wheeze in multiple lung garnica.
Abdomen: Abdomen soft and nontender.
Extremities: No evidence of cyanosis or edema. Palpable DP pulses bilaterally
Neuro: AAOx3. Grossly intact.
Psychiatric: Normal affect.
Scores
Heart Failure Risk
Heart Failure Risk Score: Not Applicable
Course
Orders/Labs/Results
Orders:
Orders
01/05/25 08:52
Dexamethasone Sod Phosphate [Decadron] 10 mg IV NOW STA
Ipratropium/Albuterol Sulfate [Duoneb] 3 ml INH R NOW STA
01/05/25 08:53
Electrocardiogram (*1) Urgent
Reason for Study: Shortness of Breath
EKG- Treatment ONCE
CR Chest - 2 Views Urgent
Comment:
Reason For Exam: SOB, wheezing
01/05/25 09:11
COVID-19 Antigen Urgent
Source: Nasal Swab
Complete Blood Count/With Diff Urgent
Comprehensive Metabolic Panel Urgent
01/05/25 10:14
Ipratropium/Albuterol Sulfate [Duoneb] 3 ml .ROUTE .STK-MED ONE
Ipratropium/Albuterol Sulfate [Duoneb] 3 ml INH R NOW STA
01/05/25 10:56
Azithromycin 500 mg/250 ml [Zithromax Infusion] 500 mg in 250 ml IV NOW
CefTRIAXone [Rocephin] 1,000 mg IV NOW STA
01/05/25 12:33
Sterile Water [Sterile Water For Injection] 20 ml .ROUTE .STK-MED
01/05/25 13:58
Admit/Transfer Patient As Directed
Co-Sign Provider:
Level of Care: Inpatient admission
Assign to:: Telemetry
Physician / Group: Carlos Giordano
Diagnosis: COPD, CAP
Reason for Telemetry: Arrhythmia
Date to Stop Telemetry: 01/08/25
Time to Stop Telemetry: 11:00
Reason for Hospitalization: COPD exacerbation and pneumonia
Expected length of stay greater than two midnights?: Yes
ELOS- Estimated Length of Stay in days: 3
I certify the patient meets the requirements for IP care: Yes
PRN Pain Medication Management As Directed
May give lesser potent ordered pain med per pt: Yes
preference::
Protocol:: Medication orders for pain may be administered in a
manner that supports deferring to patient preference
when the pt is:
- Requesting an ordered lesser potent pain medication.
Least to most potent pain medications are defined
as: acetaminophen < NSAID < tramadol < opioids
(morphine, oxycodone, hydromorphone).
- Requesting a lesser dose of the same medication IF
ORDERED.
- Requesting a less intrusive route of administration
if both routes are prescribed by the provider (PO <
IV).
01/05/25 14:01
Code Status As Directed
Resuscitation Status: Full Code
01/05/25 14:14
Ipratropium/Albuterol Sulfate [Duoneb] 3 ml INH R Q4HPRN PRN
01/05/25 Dinner
1800 calorie (15 carb) Diabetic
At Your Request: Full Participation
Does patient need a safe tray?: No
Flush (0.9% Sodium Chloride) [Flush (Nss)] See Dose Instructions IV PER PROTOCOL
01/05/25 15:57
Acetaminophen [Tylenol] 650 mg PO Q4HPRN PRN
Bisacodyl [Dulcolax] 10 mg RECTAL [id number] PRN
Docusate W/Senna [Senokot-S] 1 tablet PO BIDPRN PRN
Polyethylene Glycol Powder [Miralax] 17 grams PO DAILYPRN PRN
01/05/25 15:57
Sputum Culture [Respiratory Culture/Gram Stain] Routine
MARGARITO Source: Sputum
Specimen Description:
Activity As Directed
Activity Level: Out of Bed-Early Mobility
Intake/ Output As Directed
Frequency: Per unit guidelines
Vital Signs As Directed
Frequency: Per unit guidelines
Weight As Directed
Frequency: Daily
O2 Therapy [RESP] Routine
Titrate/Wean O2 to maintain O2 sat greater than (%): 88
Rx Pep / Acapela [RESP] Routine
DX Deep Vein Thrombosis Video Routine
01/05/25 16:00
Albuterol Nebs [Ventolin Nebules] 2.5 mg INH R QID
01/05/25 18:00
Enoxaparin Sodium [Lovenox] 40 mg SC QPM
01/05/25 20:00
Budesonide [Pulmicort] 0.5 mg INH R BID
Furosemide [Lasix] 20 mg PO BID
Guaifenesin [Mucinex] 1,200 mg PO Q12
01/06/25 06:00
Basic Metabolic Panel IN AM
Complete Blood Count/With Diff IN AM
Magnesium IN AM
Levothyroxine [Synthroid] 137 mcg PO DAILY@0600
01/06/25 08:00
Atorvastatin [Lipitor] 10 mg PO DAILY
Azithromycin [Zithromax] 500 mg PO DAILY
Budesonide/Formoterol 160/4.5 [Symbicort 160/4.5 Mcg Inhaler] 2 puff INH R BID
Cholecalciferol (Vitamin D3) [VITAMIN D3 (cholecalciferol)] 25 mcg PO DAILY
Guaifenesin [Mucinex] 600 mg PO DAILY
Montelukast Sodium [Singulair] 10 mg PO DAILY
Multivitamin [Theragran] 1 tablet PO DAILY
Pantoprazole [Protonix] 40 mg PO DAILY
Prednisone [Deltasone] 50 mg PO DAILY
01/06/25 10:00
CefTRIAXone [Rocephin] 1,000 mg IV Q24H
01/08/25 11:00
DC Protocol for Telemetry ONCE
01/16/25 08:00
mepolizumab [Nucala] 100 mg SC Q30D
Abnormal Lab Results
01/05/25
09:11
WBC 13.2 H 10^3/uL
(4.8-10.8)
MCHC 32.1 L g/dL
(33.0-37.0)
MPV 10.6 H fL
(7.4-10.4)
Abs Immat Gran (auto) 0.1 H 10^3/uL
(0-0.05)
Absolute Neuts (auto) 12.0 H 10^3/uL
(1.4-6.5)
Absolute Lymphs (auto) 0.8 L 10^3/uL
(1.2-3.4)
Neutrophils % 90.6 H %
(42.2-75.2)
Lymphocytes % 6.3 L %
(20.5-51.1)
Carbon Dioxide 31 H mmol/L
(22-30)
Creatinine 0.4 L mg/dL
(0.6-1.0)
Glucose 276 H mg/dl
(70-99)
Total Protein 6.1 L g/dl
(6.3-8.2)
01/05/25 09:11
01/05/25 09:11
Vital Signs
Initial and Last Documented VS:
Initial Vital Signs
Temp Pulse Resp BP Pulse Ox
97.8 F 94 18 128/87 96
01/05/25 08:38 01/05/25 08:38 01/05/25 08:38 01/05/25 08:38 01/05/25 08:38
Last Documented Vital Signs
Temp Pulse Resp BP Pulse Ox
97.7 F 82 18 113/62 97
01/05/25 23:48 01/05/25 23:48 01/05/25 23:48 01/05/25 23:48 01/05/25 23:48
MDM/Problems Addressed
Differential Diagnosis Includes:
Not limited to: COPD exacerbation, bronchitis, pneumonia, pneumothorax, viral illness, cardiac arrythmia, etc
MDM/Problems Addressed:
69 year old female w/ hx COPD on home O2 with progressively worsening chest tightness and SOB over the past 4 days. Some mild nonprodcutive cough. No fevers or other infectious symptoms. She uses 3L NC typically at night although recently has
required oxygen during the day. Vitals and exam as above. Lungs with significantly decreased air movement and expiratory wheeze bilaterally. Suspect COPD exacerbation. However will rule out infectious cause. Do not suspect acute coronary syndrome.
ED plan: labs, CXR, viral swabs. Will give duoneb and IV steroids and reassess.
Update 10:15 AM: Into reassess patient at bedside following initial DuoNeb. Patient states her symptoms are essentially unchanged. She is saturating well on her 3 L O2. She remains with decreased air movement and expiratory wheeze bilaterally.
Will give another DuoNeb and reassess.
Update: CXR shows RML pneumonia. Given acute COPD exacerbation w/ increased O2 requirements as well as pneumonia - will admit for further management. Rocephin and azithromycin given in ED. Patient accepted to hospitalist service in stable condition.
Chronic conditions affecting care:
COPD on 3L home O2
Acute Exacerbation and/or Progression of Chronic Illness:
Acute COPD exacerbation
*Radiology
Radiology exam reviewed: radiology read reviewed
*Pulse Oximetry
SaO2: 96
Nasal Cannula flow liters per minute: 3
Oxygen Mode of Delivery: Room air
Patient hypoxic: yes
*EKG
Interpreted by ED Provider?: Yes
EKG Intrepretation Date: 01/05/25
Interpretation: abnormal
Comparison EKG: no changes
Heart Rate: 87
Rate: normal
Rhythm: sinus
[place]: normal axis
Interval: normal QT interval
QRS Pattern: normal QRS
Ischemia: non-specific ST changes
*Poultry Slaughterer Interpretation
Rate: normal
Interpretation: normal
Heart Rate: 68
Rhythm: sinus
*Critical Care Note
Total Time (30-74mins, 75-104mins- exclusive of procedures): Not Applicable
Patient Management
Discussion with other providers: Hospitalist
ED Attending Note
-
Portions of this chart may have been created with voice recognition software.� Occasional wrong word or��sound alike� substitutions may have occurred due to the inherent limitations of voice recognition software.
Discharge Plan
Departure
Patient Disposition: Admit
Date of Disposition: 01/05/25
Time of Disposition: 10:58
Presentation/result/management discussed w/ accepting MD/DO: Hospitalist
Discharge Problem:
Acute exacerbation of chronic obstructive pulmonary disease, Right middle lobe pneumonia
Interventions
Interventions:
*Risk Screen - Suicide Last Done: 01/05/25 08:38
*General Assessment Last Done: 01/05/25 08:55
*Neglect/Abuse Screening Last Done: 01/05/25 08:38
*ED- Fall Risk Assessment Last Done: 01/05/25 08:55
*ED COVID-19 Vaccine History Last Done: 01/05/25 08:55
*Nursing Disposition Last Done: 01/05/25 16:05
ED- Cardiac Assessment Last Done: 01/05/25 09:14
ED- Pulmonary Assessment Last Done: 01/05/25 09:14
Discharge Date and Time
Discharge Date/Time: 01/05/25 16:05
[2025-01-05] MEDS: DUONEB 3 ML INH ×2 (09:12→10:16)
[2025-01-05] MEDS: DECADRON 10 MG IV (09:12)
[2025-01-05 09:20] LABS: Hematocrit 40.2 % (37.0-47.0); Hemoglobin 12.9 g/dL (12.0-16.0); Mean Corp Hgb Conc. 32.1 g/dL (33.0-37.0); Mean Corpuscular Volume 88.9 fL (81.0-99.0); Nucleated Red Blood Cells % 0 %; Platelet Count 246 10^3/uL (130-400); Red Cell Dist. Width 14.0 % (11.5-14.5)
[2025-01-05 09:37] LABS: COVID-19 Antigen Negative (Negative)
[2025-01-05 09:45] LABS: ALT (SGPT) 23 U/L (0-35); AST (SGOT) 20 U/L (14-36); Albumin 4.1 g/dl (3.5-5.0); Alkaline Phosphatase 77 U/L (38-126); Blood Urea Nitrogen 17 mg/dl (7-17); Calcium 9.0 mg/dl (8.4-10.2); Carbon Dioxide 31 mmol/L (22-30); Chloride 99 mmol/L (98-107); Estimated Creatinine Clearance 98 ml/min; Glucose 276 mg/dl (70-99); Potassium 4.1 mmol/L (3.5-5.1); Sodium 136 mmol/L (135-145); Total Protein 6.1 g/dl (6.3-8.2); eGFR > 60.00
[2025-01-05] MEDS: ZITHROMAX INFUSION 250 IV (12:32)
[2025-01-05] MEDS: ROCEPHIN 1000 MG IV (12:32)
--- NOTE | 2025-01-05 13:50 | HPS.HSE ---
Family Physician
-
Family Physician: Gayathri Tena
Chief Complaint
-
Dyspnea
History of Present Illness
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 Symptoms have been progressing
for 3 to 4 days with worsening shortness of breath, exacerbated by exertion. Came to the ED when symptoms fail to improve. AFVSS on arrival on baseline oxygen. Initial labs with WBC 13.2 with neutrophilic predominance, bicarb 31 on BMP, glucose
276. COVID testing negative. Chest x-ray showed airspace opacification of the anterior RLL suspicious for right middle lobe pneumonia. ECG unremarkable. In the ED was given 1 g IV ceftriaxone, 500 mg azithromycin, 10 mg Decadron and DuoNeb x 1.
Medical History
Past Medical History
Past Medical History: Reports Other
Additional Past Medical History:
COPD
Asthma
Hypothyroidism
GERD/Washington's esophagus
NIDDM
Past Surgical History: Reports Other
Additional Past Surgical History:
Laparoscopic cholecystectomy
Social History
Tobacco: Former Smoker
Alcohol: Occasional
Drug: None
Family History
Family History: Not pertinent
Allergies / Home Medications
Allergies reflects when Allergies were last updated in [employer].
Home Medications with original date entered in [employer]
Allergy/Medication List:
Allergies
Allergy/AdvReac Type Severity Reaction Status Date / Time
latex Allergy Rash Verified 12/20/24 14:10
levofloxacin (From Levaquin) Allergy Achilles Verified 12/20/24 14:10
Tendonitis
Penicillins Allergy Full-body Verified 12/20/24 14:10
rash;
tolerated
ceftriaxone
and
cefepime
Home Medications
montelukast 10 mg tablet 10 mg PO DAILY Lung/breathing issues 07/12/11
levothyroxine 137 mcg tablet (Synthroid) 137 mcg PO DAILY Thyroid 06/09/18
atorvastatin 10 mg tablet 10 mg PO DAILY High cholesterol 04/29/21
metformin 500 mg tablet,extended release 24 hr 500 mg PO BID Diabetes 04/15/22
guaifenesin 600 mg tablet, extended release 12 hr (Mucinex) 600 mg PO DAILY Congestion 07/15/22
furosemide 20 mg tablet (Lasix) 20 mg PO BID Fluid Retention/Swelling 09/18/22
albuterol sulfate 2.5 mg/3 mL (0.083 %) solution for nebulization 2.5 mg inhalation R BID 11/19/23
albuterol sulfate 90 mcg/actuation aerosol inhaler 2 puff inhalation R Q4HPRN PRN sob 11/19/23
budesonide 0.5 mg/2 mL suspension for nebulization 0.5 mg inhalation R BID Lung/Breathing Issues 11/19/23
cholecalciferol (vitamin D3) 25 mcg (1,000 unit) tablet 25 mcg PO DAILY Supplement 11/19/23
mepolizumab 100 mg/mL subcutaneous auto-injector (Nucala) 100 mg SC QMONTH 11/19/23
azithromycin 250 mg tablet 250 mg PO Q48H Lung/breathing issues 12/22/23
pantoprazole 40 mg tablet,delayed release 40 mg PO DAILY #20 tabs 10/05/24
fluticasone fur. 200 mcg-umeclid 62.5 mcg-vilant 25 mcg inhalat.powder (Trelegy Ellipta) 1 inh inhalation R DAILY 01/05/25
prednisone 20 mg tablet 20 mg PO DAILY 01/05/25
therapeutic multivitamin 1 tab PO DAILY 01/05/25
Review of Systems
-
History Source: Patient
A 12 point ROS was completed and negative except as noted: Yes
Constitutional: Reports No Symptoms
EENT: Reports No Symptoms
Respiratory: Reports See HPI
Cardiac: Reports No Symptoms
Abdomen/GI: Reports No Symptoms
: Reports No Symptoms
Musculoskeletal: Reports No Symptoms
Skin: Reports No Symptoms
Neurological: Reports No Symptoms
Endocrine: Reports No Symptoms
Hematologic/Lymphatic: Reports No Symptoms
Psych: Reports No Symptoms
Physical Exam
Vital Signs
Vital Signs
Temp Pulse Resp BP Pulse Ox
97.8 F 86 15 118/62 97
01/05/25 08:38 01/05/25 10:15 01/05/25 10:15 01/05/25 10:13 01/05/25 10:15
Physical Exam
General: Well Developed, Well Nourished and No Apparent Distress
HEENT: NormoCephalic, Anicteric, Moist mucous membranes and Oxygen
Respiratory: Wheezes and Non Labored Respirations; No Rales, Rhonchi or Accessory Resp Muscle Use
Cardiac: S1/S2 and Regular Rhythm; No Murmur, Rub, Gallop or Peripheral Edema
GI: Soft, Non Tender, Non Distended and Normal Bowel Sounds
Musculoskeletal: No Clubbing and No Cyanosis
Skin: Warm and Dry; No Rash
Neuro: AO x 3, Nonfocal/grossly intact and Cranial Nerves Intact; No Tremors
Psych: Calm
Laboratory Results
-
01/05/25 09:11
01/05/25 09:11
Laboratory Results
Total Bilirubin 0.5 mg/dl (0.2-1.3) 01/05/25 09:11
AST 20 U/L (14-36) 01/05/25 09:11
ALT 23 U/L (0-35) 01/05/25 09:11
Alkaline Phosphatase 77 U/L (38-126) 01/05/25 09:11
Data Reviewed
-
Lab Data: Labs Reviewed by me and Discussed with Patient
Impression/Plan
-
#Acute on chronic hypoxemic and hypercapnic respiratory failure
#COPD/asthma with exacerbation
#Community-acquired pneumonia
-Chronic respiratory failure from COPD and asthma, 3 L O2 baseline; GOLD C-D class
-Home regimen includes Trelegy, montelukast, nepolizumab, azithromycin, bronchodilators, prednisone 20
-Presented with worsening dyspnea; CXR showing RML pneumonia, leukocytosis present
-In the ED was started on IV ceftriaxone and azithromycin, IV Decadron and DuoNeb
-Check sputum culture; continue IV ceftriaxone and azithromycin, follow CBC and temp
-Start RTC bronchodilators and transition to 50 mg prednisone daily
-Start pulmonary toileting with Acapella and mucinex
-Wean oxygen for SpO2 goal 88 to 94%
-Consider pulm consult
#NIDDM
-Well-controlled with last A1c 6.5%; no known microvascular disease
-Home regimen includes metformin 500 mg twice daily; also on statin
-Transition to ISS with Accu-Cheks while hospitalized
-Blood glucose goal 140-180
#Hypothyroidism
-Unknown etiology, Home regimen includes levothyroxine 137 mcg daily
- No signs or symptoms of thyroid dysfunction at this time
#GERD C/B Washington's esophagus
-Home regimen includes pantoprazole 40 mg daily
#Chronic venous insufficiency
-Patient on Lasix regimen for ankle swelling
-Has varicose veins consistent with venous insufficiency
-Denies any known diagnosis of heart failure
-Monitor I's and O's, daily weights
-Consider TTE
Diet: Carbohydrate controlled
DVT prophylaxis: SC Lovenox
CODE STATUS: Full code
[2025-01-05] MEDS: VENTOLIN NEBULES 2.5 MG INH ×2 (15:30→20:10)
--- NOTE | 2025-01-05 16:25 | PTCARENOTE ---
Received pt from ED via stretcher. Pt AAOX3. Pox: 98% 3L NC. NSR on air sampling and monitoring. Call delatorre within reach. Plan of care ongoing.
[2025-01-05 16:45] LABS: Glucose - Point of Care 377 mg/dl (70-99)
[2025-01-05] MEDS: LOVENOX 40 MG SC (18:03)
[2025-01-05] MEDS: NOVOLOG FLEXPEN-MODERATE RESISTANCE 9 UNITS SC (18:04)
[2025-01-05] MEDS: LASIX 20 MG PO (19:35)
[2025-01-05] MEDS: MUCINEX 1200 MG PO (19:35)
[2025-01-05] MEDS: TYLENOL 650 MG PO (19:35)
[2025-01-05] MEDS: PULMICORT 0.5 MG INH (20:10)
[2025-01-05 22:14] LABS: Glucose - Point of Care 180 mg/dl (70-99)
[2025-01-06 03:55] VITALS: BP 111/70
[2025-01-06 06:00] VITALS: BMI 26.4
[2025-01-06] MEDS: SYNTHROID 137 MCG PO (06:13)
[2025-01-06] MEDS: PULMICORT 0.5 MG INH ×2 (07:34→19:26)
[2025-01-06] MEDS: SPIRIVA RESPIMAT 2.5 MCG 2 PUFF INH (07:34)
[2025-01-06] MEDS: VENTOLIN NEBULES 2.5 MG INH ×4 (07:34→19:26)
[2025-01-06] MEDS: SYMBICORT 160/4.5 MCG INHALER 2 PUFF INH ×2 (07:35→19:26)
[2025-01-06 07:40] VITALS: BP 108/61
[2025-01-06 07:48] LABS: Glucose - Point of Care 156 mg/dl (70-99)
[2025-01-06] MEDS: NOVOLOG FLEXPEN-MODERATE RESISTANCE 1 UNITS SC (07:56)
[2025-01-06] MEDS: MUCINEX 1200 MG PO ×2 (07:56→19:55)
[2025-01-06] MEDS: ZITHROMAX 500 MG PO (07:56)
[2025-01-06] MEDS: LIPITOR 10 MG PO (07:57)
[2025-01-06] MEDS: DELTASONE 50 MG PO (07:57)
[2025-01-06] MEDS: VITAMIN D3 (cholecalciferol) 25 MCG PO (07:57)
[2025-01-06] MEDS: THERAGRAN 1 TABLET PO (07:57)
[2025-01-06] MEDS: SINGULAIR 10 MG PO (07:57)
[2025-01-06] MEDS: PROTONIX 40 MG PO (07:57)
[2025-01-06 08:06] LABS: Hematocrit 39.3 % (37.0-47.0); Hemoglobin 12.9 g/dL (12.0-16.0); Mean Corp Hgb Conc. 32.8 g/dL (33.0-37.0); Mean Corpuscular Volume 89.5 fL (81.0-99.0); Nucleated Red Blood Cells % 0 %; Platelet Count 269 10^3/uL (130-400); Red Cell Dist. Width 14.0 % (11.5-14.5)
[2025-01-06 08:33] LABS: Blood Urea Nitrogen 13 mg/dl (7-17); Calcium 9.0 mg/dl (8.4-10.2); Carbon Dioxide 37 mmol/L (22-30); Chloride 98 mmol/L (98-107); Estimated Creatinine Clearance 87 ml/min; Glucose 139 mg/dl (70-99); Magnesium 2.2 mg/dl (1.6-2.3); Potassium 4.1 mmol/L (3.5-5.1); Sodium 137 mmol/L (135-145); eGFR > 60.00
[2025-01-06] MEDS: LASIX 20 MG PO ×2 (08:35→19:55)
[2025-01-06] MEDS: ROCEPHIN 1000 MG IV (09:28)
[2025-01-06] MEDS: STERILE WATER FOR INJECTION 10 ML IV (09:28)
[2025-01-06] MEDS: FLUSH (NSS) 1 FLUSH IV (09:28)
--- NOTE | 2025-01-06 10:56 | CM ---
Patient seen bedside, initial assessment completed. Patient is a 69-year-old female with chronic hypoxemic and hypercapnic respiratory failure on 3 L O2, COPD, asthma, hypothyroidism, GERD/BE, NIDDM presenting to the hospital today with a complaint
of chest tightness and dyspnea. 3L O2. IV abx.
Patient resides w/ spouse in a 2STH, 1 step to enter from the outside. Patient is independent w/ ambulation, no device required. Independent w/ ADLs. Patient has home O2 through [employer]. Patient is on 2L at home, concentrator goes up to 6L. Patient
has portable device as well. Denies SNF/HC hx.
Address, point of contact and insurance verified
PCP: Gayathri Tena
Pharmacy: [facility]
Plan: Anticipate home, will watch for needs
--- NOTE | 2025-01-06 11:09 | W.PN.HOSP.TC ---
Addendum entered and electronically signed by Carlos Giordano DO 01/06/25 15:49:
CDI: Sepsis CHEMICAL WEIGHER, now improved
Addendum entered and electronically signed by Carlos Giordano DO 01/06/25 11:14:
Seen and examined at the bedside. No acute events overnight. AFVSS on 3 L baseline today. Patient states she is feeling slightly better. Still has some shortness of breath while she ambulates
AO x 4, NAD
MMM, NC/AT
RRR, no murmur, normal S1-2
Generalized expiratory wheeze and rhonchi, nonlabored
Abdomen benign
Palpable pulses, no edema
No FND or CN deficits
Original Note:
Today's Communication/Plan
-
Continue ceftriaxone and azithromycin
Continue prednisone 50 mg daily
RTC bronchodilators
Home Trelegy equivalent
Mucous clearing techniques
Wean O2
Assessment / Plan
Assessment / Plan
#Acute on chronic hypoxemic and hypercapnic respiratory failure
#COPD/asthma with exacerbation
#Community-acquired pneumonia
-Chronic respiratory failure from COPD and asthma, 3 L O2 baseline; GOLD C-D class
-Home regimen includes Trelegy, montelukast, mepolizumab, azithromycin, bronchodilators, prednisone 20
-Presented with worsening dyspnea; CXR showing RML pneumonia, leukocytosis present, hypoxemia
-Clinically improving on IV CTX, azithromycin, RTC bronchodilators, oral prednisone 50 mg
-Continue with home Trelegy equivalent and montelukast; biologic not on formulary
-Continue with pulmonary toileting with Acapella and mucinex
-Wean oxygen for SpO2 goal 88 to 94%
#NIDDM
-Well-controlled with last A1c 6.5%; no known microvascular disease
-Home regimen includes metformin 500 mg twice daily; also on statin
-Transition to ISS with Accu-Cheks while hospitalized
-Blood glucose goal 140-180
#Hypothyroidism
-Unknown etiology, Home regimen includes levothyroxine 137 mcg daily
- No signs or symptoms of thyroid dysfunction at this time
#GERD C/B Washington's esophagus
-Home regimen includes pantoprazole 40 mg daily
#Chronic venous insufficiency
-Patient on Lasix regimen for ankle swelling
-Has varicose veins consistent with venous insufficiency
-Denies any known diagnosis of heart failure
-Monitor I's and O's, daily weights
-Consider TTE
Diet: Carbohydrate controlled
DVT prophylaxis: SC Lovenox
CODE STATUS: Full code
Anticipated Discharge: 24 - 48 hours
Subjective/Interval History
-
Date of Service: January 06, 2025
Objective Data
-
Labs:
Laboratory Results
01/06/25
07:38
WBC 13.1 H
Hgb 12.9
Hct 39.3
Plt Count 269
Sodium 137
Potassium 4.1
Chloride 98
Carbon Dioxide 37 H
BUN 13
Creatinine 0.4 L
Glucose 139 H
Calcium 9.0
Vital Signs:
Vital Signs
Temp Pulse Resp BP Pulse Ox
98.2 F 82 18 115/58 97
01/06/25 07:40 01/06/25 08:35 01/06/25 07:40 01/06/25 08:35 01/06/25 08:30
[2025-01-06 11:20] VITALS: BP 123/66
[2025-01-06 11:45] LABS: Glucose - Point of Care 211 mg/dl (70-99)
[2025-01-06] MEDS: NOVOLOG FLEXPEN-MODERATE RESISTANCE 3 UNITS SC (12:00)
[2025-01-06 15:25] VITALS: BP 131/69
--- NOTE | 2025-01-06 15:32 | PN.CDI ---
CDI
- -
CDI:
Physician Documentation Request
Admit Date: 01/05/25 14:51
Dear Doctor Pasquale,
Patient admitted with pneumonia.
On admission, WBC 13.2 and HR> 90.
01/06 PN, 'Continue ceftriaxone and azithromycin.'
Please clarify which of the following most accurately describes the status of the patient's infection:
Sepsis, POA
Pneumonia only
Other
Sepsis
- Systemic manifestations of infection, with 2 or more SIRS criteria which include:
- Fever >100.9 degrees F or hypothermia < 96.8 degrees F
- Leukocytosis - WBC > 12,000 or leukopenia - WBC < 4,000 or > 10% bands
- Tachycardia > 90 beats per minute
- Tachypnea - RR > 20 breaths per minute or PaCO2 , 32mmHg
Source: Merck Manual 2013
- Indicate the known or suspected organism
- Indicate the known or suspected underlying infection, such as pneumonia
Localized Infection Only, Without Systemic Illness
- indicate the site/source, such as pneumonia
Other
Use of terms such as suspected, likely, concern for, or probable (associated with a specific diagnosis that is being evaluated, monitored, or treated as if it exists) are acceptable and can be coded in the inpatient setting, when documented at the
time of discharge.
Thank you,
Columba NIELSON,RN,CCDS
CDI Specialist
Available via [facility] text
Please use your independent medical judgment in providing your response.
[2025-01-06 17:02] LABS: Glucose - Point of Care 390 mg/dl (70-99)
[2025-01-06] MEDS: NOVOLOG FLEXPEN-MODERATE RESISTANCE 9 UNITS SC (17:05)
[2025-01-06] MEDS: LOVENOX 40 MG SC (17:05)
[2025-01-06 19:53] VITALS: BP 121/64
[2025-01-06 21:07] LABS: Glucose - Point of Care 328 mg/dl (70-99)
[2025-01-06] MEDS: NOVOLOG FLEXPEN 7 UNITS SC (22:05)
[2025-01-06 23:40] VITALS: BP 121/67
[2025-01-07 03:16] VITALS: BP 96/46
[2025-01-07] MEDS: SYNTHROID 137 MCG PO (05:44)
[2025-01-07] MEDS: SPIRIVA RESPIMAT 2.5 MCG 2 PUFF INH (07:23)
[2025-01-07] MEDS: PULMICORT 0.5 MG INH ×2 (07:23→19:31)
[2025-01-07] MEDS: VENTOLIN NEBULES 2.5 MG INH ×4 (07:23→19:31)
[2025-01-07] MEDS: SYMBICORT 160/4.5 MCG INHALER 2 PUFF INH ×2 (07:23→19:31)
[2025-01-07 07:55] LABS: Glucose - Point of Care 95 mg/dl (70-99)
[2025-01-07 07:56] VITALS: BP 116/64
[2025-01-07 08:00] LABS: Hematocrit 39.8 % (37.0-47.0); Hemoglobin 12.7 g/dL (12.0-16.0); Mean Corp Hgb Conc. 31.9 g/dL (33.0-37.0); Mean Corpuscular Volume 89.8 fL (81.0-99.0); Platelet Count 245 10^3/uL (130-400); Red Cell Dist. Width 14.3 % (11.5-14.5)
[2025-01-07 08:01] LABS: Nucleated Red Blood Cells % 0 %
[2025-01-07 08:30] LABS: Blood Urea Nitrogen 18 mg/dl (7-17); Calcium 8.8 mg/dl (8.4-10.2); Carbon Dioxide 35 mmol/L (22-30); Chloride 102 mmol/L (98-107); Estimated Creatinine Clearance 87 ml/min; Glucose 93 mg/dl (70-99); Potassium 4.0 mmol/L (3.5-5.1); Sodium 139 mmol/L (135-145); eGFR > 60.00
[2025-01-07] MEDS: DELTASONE 50 MG PO (09:39)
[2025-01-07] MEDS: MUCINEX 1200 MG PO ×2 (09:39→19:37)
[2025-01-07] MEDS: ZITHROMAX 500 MG PO (09:39)
[2025-01-07] MEDS: NOVOLOG FLEXPEN-MODERATE RESISTANCE SC (09:39)
[2025-01-07] MEDS: LASIX 20 MG PO (09:40)
[2025-01-07] MEDS: VITAMIN D3 (cholecalciferol) 25 MCG PO (09:40)
[2025-01-07] MEDS: PROTONIX 40 MG PO (09:40)
[2025-01-07] MEDS: LIPITOR 10 MG PO (09:40)
[2025-01-07] MEDS: SINGULAIR 10 MG PO (09:40)
[2025-01-07] MEDS: THERAGRAN 1 TABLET PO (09:40)
--- NOTE | 2025-01-07 10:00 | W.PN.HOSP.TC ---
Today's Communication/Plan
-
Continue oral steroid, RTC nebs
Continue antibiotics
Monitor O2
Likely DC tomorrow
Assessment / Plan
Assessment / Plan
#Acute on chronic hypoxemic and hypercapnic respiratory failure
#COPD/asthma with exacerbation
#Community-acquired pneumonia
-Chronic respiratory failure from COPD and asthma, 3 L O2 baseline; GOLD C-D class
-Home regimen includes Trelegy, montelukast, mepolizumab, azithromycin, bronchodilators, prednisone 20
-Presented with worsening dyspnea; CXR showing RML pneumonia, leukocytosis present, hypoxemia
-Clinically improving on IV CTX, azithromycin, RTC bronchodilators, oral prednisone 50 mg
-Continue with home Trelegy equivalent and montelukast; biologic not on formulary
-Continue with pulmonary toileting with Acapella and mucinex
-Wean oxygen for SpO2 goal 88 to 94%
-Pulmonology to move up OP visit at time of DC
-At discharge, plan for Augmentin to complete 7 days
-At discharge, plan for prednisone wean from 50 to 20 mg QD
#NIDDM
-Well-controlled with last A1c 6.5%; no known microvascular disease
-Home regimen includes metformin 500 mg twice daily; also on statin
-Transition to ISS with Accu-Cheks while hospitalized
-Blood glucose goal 140-180
#Hypothyroidism
-Unknown etiology, Home regimen includes levothyroxine 137 mcg daily
-No signs or symptoms of thyroid dysfunction at this time
#GERD C/B Washington's esophagus
-Home regimen includes pantoprazole 40 mg daily
#Chronic venous insufficiency
-Patient on Lasix regimen for ankle swelling
-Has varicose veins consistent with venous insufficiency
-Denies any known diagnosis of heart failure
-Monitor I's and O's, daily weights
-Consider TTE
Diet: Carbohydrate controlled
DVT prophylaxis: SC Lovenox
CODE STATUS: Full code
Anticipated Discharge: Within 24 hours
Subjective/Interval History
-
Date of Service: January 07, 2025
Seen and examined at the bedside. No acute events reported overnight. AFVSS on 3 L O2 baseline, SpO2 100%
Denies any new complaints this morning. States she feels she is breathing well, still slightly short of breath with exertion
Labs are stable.
Objective Data
-
Labs:
Laboratory Results
01/07/25
07:28
WBC 10.3
Hgb 12.7
Hct 39.8
Plt Count 245
Sodium 139
Potassium 4.0
Chloride 102
Carbon Dioxide 35 H
BUN 18 H
Creatinine 0.5 L
Glucose 93
Calcium 8.8
Vital Signs:
Vital Signs
Temp Pulse Resp BP Pulse Ox
98 F 76 18 116/64 100
01/07/25 07:56 01/07/25 09:40 01/07/25 07:56 01/07/25 09:40 01/07/25 07:56
I&O
01/06/25 01/07/25 01/08/25
06:59 06:59 06:59
Intake Total 360 / 360
Balance 360 / 360
Review of Systems
-
History Source: Patient
All other systems: Reviewed and negative
Physical Exam
-
General: Well Developed, No Apparent Distress and Comfortable
HEENT: Normocephalic, Atraumatic, Moist Mucous Membranes and Anicteric
Respiratory: Rhonchi and Non Labored Respirations; Negative Wheezes, Rales or Accessory Resp Muscle Use
Cardiac: Regular Rhythm and S1/S2; Negative Murmur, Rub or Gallop
GI: Soft, Nontender, Nondistended and Normal Bowel Sounds
Musculoskeletal: No Clubbing, No Cyanosis and No Edema
Skin: Warm and Dry; Negative Rash
Neuro: AO x 3, Nonfocal/Grossly Intact and Central Nerve's Intact
Psych: Calm
Data Reviewed
-
Labs: Labs Reviewed by me and Discussed with Patient
[2025-01-07 11:17] VITALS: BP 110/62
[2025-01-07] MEDS: ROCEPHIN 1000 MG IV (11:18)
[2025-01-07] MEDS: STERILE WATER FOR INJECTION 10 ML IV (11:18)
[2025-01-07 11:53] LABS: Glucose - Point of Care 215 mg/dl (70-99)
[2025-01-07] MEDS: NOVOLOG FLEXPEN-MODERATE RESISTANCE 3 UNITS SC ×2 (13:02→17:53)
--- NOTE | 2025-01-07 15:11 | CM ---
Patient seen at bedside on . Patient plan is for discharge home with home O2 watch for possible VN needs. CM will continue to follow for discharge planning needs.
Plan; home with no needs vs home with O2/VN
[2025-01-07 15:26] VITALS: BP 117/75
[2025-01-07 16:33] LABS: Glucose - Point of Care 246 mg/dl (70-99)
[2025-01-07] MEDS: LOVENOX 40 MG SC (17:52)
[2025-01-07] MEDS: LASIX PO (19:33)
[2025-01-07 19:38] VITALS: BP 120/56
[2025-01-07 21:07] LABS: Glucose - Point of Care 324 mg/dl (70-99)
[2025-01-07] MEDS: NOVOLOG FLEXPEN 6 UNITS SC (21:41)
[2025-01-07 23:07] VITALS: BP 136/74
[2025-01-08 00:22] LABS: Glucose - Point of Care 124 mg/dl (70-99)
[2025-01-08] MEDS: SYNTHROID 137 MCG PO (03:31)
[2025-01-08 03:36] VITALS: BP 115/63
[2025-01-08 03:40] LABS: Glucose - Point of Care 113 mg/dl (70-99)
[2025-01-08] MEDS: LASIX PO (03:59)
[2025-01-08 06:00] VITALS: BMI 26.7
[2025-01-08 07:00] VITALS: BP 121/65
[2025-01-08 07:06] LABS: Hematocrit 39.9 % (37.0-47.0); Hemoglobin 12.5 g/dL (12.0-16.0); Mean Corp Hgb Conc. 31.3 g/dL (33.0-37.0); Mean Corpuscular Volume 91.1 fL (81.0-99.0); Nucleated Red Blood Cells % 0 %; Platelet Count 236 10^3/uL (130-400); Red Cell Dist. Width 14.3 % (11.5-14.5)
[2025-01-08 07:27] LABS: Glucose - Point of Care 106 mg/dl (70-99)
[2025-01-08] MEDS: NOVOLOG FLEXPEN-MODERATE RESISTANCE SC (07:29)
[2025-01-08 07:41] LABS: Blood Urea Nitrogen 17 mg/dl (7-17); Calcium 8.9 mg/dl (8.4-10.2); Carbon Dioxide 34 mmol/L (22-30); Chloride 102 mmol/L (98-107); Estimated Creatinine Clearance 87 ml/min; Glucose 95 mg/dl (70-99); Potassium 4.0 mmol/L (3.5-5.1); Sodium 137 mmol/L (135-145); eGFR > 60.00
[2025-01-08] MEDS: PULMICORT 0.5 MG INH (07:51)
[2025-01-08] MEDS: SYMBICORT 160/4.5 MCG INHALER 2 PUFF INH (07:51)
[2025-01-08] MEDS: SPIRIVA RESPIMAT 2.5 MCG 2 PUFF INH (07:51)
[2025-01-08] MEDS: VENTOLIN NEBULES 2.5 MG INH (07:58)
[2025-01-08] MEDS: LIPITOR 10 MG PO (08:05)
[2025-01-08] MEDS: MUCINEX 1200 MG PO (08:06)
[2025-01-08] MEDS: THERAGRAN 1 TABLET PO (08:06)
[2025-01-08] MEDS: ZITHROMAX 500 MG PO (08:06)
[2025-01-08] MEDS: VITAMIN D3 (cholecalciferol) 25 MCG PO (08:06)
[2025-01-08] MEDS: PROTONIX 40 MG PO (08:06)
[2025-01-08] MEDS: SINGULAIR 10 MG PO (08:06)
[2025-01-08] MEDS: LASIX 20 MG PO (08:06)
[2025-01-08] MEDS: DELTASONE 50 MG PO (08:06)
--- NOTE | 2025-01-08 10:03 | W.PN.HOSP.TC ---
Today's Communication/Plan
-
see A/P
Assessment / Plan
Assessment / Plan
# Acute on chronic hypoxemic and hypercapnic respiratory failure
# COPD/asthma with exacerbation
# Community-acquired pneumonia
Chronic respiratory failure from COPD and asthma, 3L O2 baseline; GOLD C-D class
Home regimen includes Trelegy, montelukast, mepolizumab, azithromycin, bronchodilators, prednisone 20mg
Presented with worsening dyspnea; CXR showing RML pneumonia
Clinically improving on IV CTX, azithromycin -> transition to Cefdinir and doxycycline for 3 more days after DC (total 5 days)
RTC bronchodilators,
oral prednisone 50 mg -> taper outpt back to baseline 20 mg daily
Continue with home Trelegy equivalent and montelukast; biologic not on formulary
Continue with pulmonary toileting with Acapella and mucinex
Wean oxygen for SpO2 goal 88 to 94%
Per pt, she has Pulmonology OP visit on 01/10
# NIDDM
Well-controlled with last A1c 6.5%; no known microvascular disease
Home regimen includes metformin 500 mg twice daily; also on statin
Transition to ISS with Accu-Cheks while hospitalized
Blood glucose goal 140-180
# Hypothyroidism
Unknown etiology, Home regimen includes levothyroxine 137 mcg daily
No signs or symptoms of thyroid dysfunction at this time
# GERD C/B Washington's esophagus
Home regimen includes pantoprazole 40 mg daily
# Chronic venous insufficiency
Patient on Lasix regimen for ankle swelling
Has varicose veins consistent with venous insufficiency
Denies any known diagnosis of heart failure
Monitor I's and O's, daily weights
Consider TTE
Diet: Carbohydrate controlled
DVT prophylaxis: SC Lovenox
CODE STATUS: Full code
Anticipated Discharge: Today
Subjective/Interval History
-
Date of Service: January 08, 2025
Objective Data
-
Labs:
Laboratory Results
01/08/25
06:21
WBC 12.0 H
Hgb 12.5
Hct 39.9
Plt Count 236
Sodium 137
Potassium 4.0
Chloride 102
Carbon Dioxide 34 H
BUN 17
Creatinine 0.5 L
Glucose 95
Calcium 8.9
Vital Signs:
Vital Signs
Temp Pulse Resp BP Pulse Ox
36.5 C 82 16 121/65 97
01/08/25 07:00 01/08/25 07:56 01/08/25 07:56 01/08/25 07:00 01/08/25 07:56
I&O
01/07/25 01/08/25 01/09/25
06:59 06:59 06:59
Intake Total 360 / 360 960 / 960
Balance 360 / 360 960 / 960
Review of Systems
-
History Source: Patient
All other systems: Reviewed and negative
Physical Exam
-
General: Well Developed, Well Nourished, Comfortable, Respiratory Distress (chronic) and Conversant
HEENT: Normocephalic, Atraumatic, Moist Mucous Membranes, Anicteric and Oxygen (3L NC)
Respiratory: Wheezes (mild), Rhonchi and Non Labored Respirations; Negative Rales or Accessory Resp Muscle Use
Cardiac: Regular Rhythm and S1/S2; Negative Murmur, Rub or Gallop
GI: Soft, Nontender, Nondistended and Normal Bowel Sounds
Musculoskeletal: No Clubbing, No Cyanosis and No Edema
Skin: Warm and Dry; Negative Rash
Neuro: Awake, Alert, Oriented, AO x 3 and Nonfocal/Grossly Intact
Psych: Calm and Intact Judgement/Insight
Data Reviewed
-
Labs: Labs Reviewed by me
[2025-01-08] MEDS: ROCEPHIN 1000 MG IV (10:22)
[2025-01-08] MEDS: STERILE WATER FOR INJECTION 10 ML IV (10:22)
--- NOTE | 2025-01-08 11:10 | CM ---
Patient seen at bedside on . Patient completed IMM signed form placed on chart. Patient plan is for home with and she has her home O2 for transportation home. Patient declined VN supports at this time. CM will continue to follow for
discharge planning needs.
Plan; home with O2 and no VN with family
--- NOTE | 2025-01-08 13:50 | W.DCSUMMARY ---
Discharge Summary
Discharge Data
Date of Admission: 01/05/25
Date of Discharge: 01/08/25
Total time spent discharging patient (in min): 40
-
Pending Results: No
Hospital Course
Principal Diagnosis:
Acute on chronic hypoxemic and hypercapnic respiratory failure
COPD/asthma with exacerbation
Community-acquired pneumonia
Chronic Diagnoses:�
Odu-[id number]-dzoprmtvs diabetes
Hypothyroidism, on home levothyroxine 137 mcg daily
GERD C/B Washington's esophagus
Chronic venous insufficiency
Consultations:�
None
Procedures:�
None
Clinical course:�
This is a 69-year-old female, with past medical history as stated above, who presented with shortness of breath, chest tightness and acute on chronic hypoxia.
Problem 1:
Acute on chronic hypoxemic and hypercapnic respiratory failure, due to COPD/asthma exacerbation and community-acquired pneumonia.
Her CXR showed RML pneumonia.
Her oxygen was weaned back to baseline at 3 L nasal cannula.
She received IV ceftriaxone azithromycin while in the hospital, and was discharged with cefdinir and doxycycline for 3 more days (total 6 days course).
She was started with higher dose prednisone at 50 mg, and she can continue such dose with tapering back to her home dose at 20 mg daily.
The patient has a pulmonary outpatient follow-up appointment on 01/10/2025.
As for the rest of her medical problems, they were stable during her hospital stay.
Discharge Plan
-
Patient Disposition: Home (Routine Discharge)
Discharge Diagnosis/Procedures: Acute on chronic hypoxemic and hypercapnic respiratory failure;
COPD/asthma with exacerbation;
Community-acquired pneumonia
Condition: Fair
Diet: As tolerated and Other diet
Activity: As tolerated
Driving Restrictions: As prior to admission
Referrals:
Gayathri Tnea MD [Family Provider, Family Practice] - in less than 1 week
Additional Discharge Medication Instructions: Continue Cefdinir and doxycycline for 3 more days (avoid sun exposure and dairy products while on doxycycline).
Continue prednisone 50 mg and taper 10 mg every 3 days until you are back to your baseline dose at 20 mg daily
Prescriptions:
New
cefdinir 300 mg capsule
300 mg PO BID 3 Days Qty: 6 0RF
doxycycline hyclate 100 mg capsule
100 mg PO BID 3 Days Qty: 6 0RF
prednisone 10 mg Tablet
See Rx Instructions .ROUTE .COMPLEX Qty: 30 0RF
Rx Instructions:
Take By Mouth:
50 mg daily x3 days, 40 mg daily x3 days, 30 mg daily x3 days, then continue 20 mg daily
Continued
montelukast 10 MG tablet
10 mg PO DAILY
levothyroxine [Synthroid] 137 MCG tablet
137 mcg PO DAILY
atorvastatin 10 MG tablet
10 mg PO DAILY
metformin 500 mg Tablet Extended Release 24 Hr
500 mg PO BID
guaifenesin [Mucinex] 600 mg tablet extended release 12hr
600 mg PO DAILY
furosemide [Lasix] 20 mg Tablet
20 mg PO BID
albuterol sulfate 2.5 mg /3 mL (0.083 %) Solution For Nebulization
2.5 mg inhalation R BID
budesonide 0.5 mg/2 mL Suspension For Nebulization
0.5 mg INHALATION R BID
albuterol sulfate 90 mcg/actuation Hfa Aerosol Inhaler
2 puff INHALATION R Q4HPRN PRN (Reason: sob)
cholecalciferol (vitamin D3) 25 mcg (1,000 unit) Tablet
25 mcg PO DAILY
Nucala 100 mg/mL Auto-Injector
100 mg SC QMONTH
therapeutic multivitamin Tablet
1 tab PO DAILY
Trelegy Ellipta 200-62.5-25 mcg Blister With Device
1 inh INHALATION R DAILY
pantoprazole 40 mg tablet,delayed release (DR/EC)
40 mg PO DAILY
Held
azithromycin 250 mg tablet
250 mg PO Q48H
Hold Instructions: Resume on 01/12/25. hold while on doxycycline
prednisone 20 mg Tablet
20 mg PO DAILY
Hold Instructions: Resume on 01/18/25.
Discharge Orders:
Discharge Patient (As Directed); Ordered 01/08/25
Ordered By: Ida Rouse
Discharge Date and Time
Discharge Date/Time: 01/08/25 11:20
Print Language: TAJIK
== END 2025-01-08 11:20 | disposition home or self-care (01) | DRG 871 ==
LOC: 4 EAST ACU 14:51
PROVIDERS: Physician Assistant; ADMITTING PHYSICIAN Internal Medicine; ATTENDING PHYSICIAN Internal Medicine; EMERGENCY PHYSICIAN Emergency Medicine; FAMILY PHYSICIAN Family Medicine
DX: A41.9 Sepsis, unspecified organism (principal); J18.9 Pneumonia, unspecified organism; J96.21 Acute and chronic respiratory failure with hypoxia; J96.22 Acute and chronic respiratory failure with hypercapnia; J44.0 Chronic obstructive pulmonary disease with (acute) lower respiratory infection; J44.1 Chronic obstructive pulmonary disease with (acute) exacerbation; E11.9 Type 2 diabetes mellitus without complications; E03.9 Hypothyroidism, unspecified; K21.9 Gastro-esophageal reflux disease without esophagitis; I87.2 Venous insufficiency (chronic) (peripheral); K22.70 Barrett's esophagus without dysplasia; I83.90 Asymptomatic varicose veins of unspecified lower extremity; Z99.81 Dependence on supplemental oxygen; Z87.891 Personal history of nicotine dependence; Z88.0 Allergy status to penicillin; Z88.1 Allergy status to other antibiotic agents; Z91.040 Latex allergy status; Z79.84 Long term (current) use of oral hypoglycemic drugs; Z79.890 Hormone replacement therapy; Z79.51 Long term (current) use of inhaled steroids; Z79.52 Long term (current) use of systemic steroids; Z11.52 Encounter for screening for COVID-19
CPT/HCPCS: 71046; 80048; 80053; 82962; 83735; 85025; 87811; 93005; 94640; 96374; 96375; 99285

== ENCOUNTER 2025-01-17 13:47 | Outpatient (RCR) | payer MEDICARE, BC, SELFPAY ==
[2025-01-17 14:13] VITALS: BP 98/52
[2025-01-17] MEDS: NUCALA 1 MG SC (14:21)
== END 2025-01-18 08:49 | disposition home or self-care (01) ==
LOC: OID 13:47
PROVIDERS: ATTENDING PHYSICIAN Internal Medicine Critical Care Medicine; FAMILY PHYSICIAN Family Medicine
DX: J45.40 Moderate persistent asthma, uncomplicated (principal); J44.9 Chronic obstructive pulmonary disease, unspecified; R06.02 Shortness of breath; Z87.891 Personal history of nicotine dependence
CPT/HCPCS: 96372; J2182

== ENCOUNTER 2025-02-14 13:42 | Outpatient (RCR) | payer MEDICARE, BC, SELFPAY ==
[2025-02-14 13:50] VITALS: BP 128/51
[2025-02-14] MEDS: NUCALA 1 MG SC (14:11)
== END 2025-02-15 11:18 | disposition home or self-care (01) ==
LOC: OID 13:42
PROVIDERS: ATTENDING PHYSICIAN Internal Medicine Critical Care Medicine; FAMILY PHYSICIAN Family Medicine
DX: J45.50 Severe persistent asthma, uncomplicated (principal); J44.9 Chronic obstructive pulmonary disease, unspecified; Z87.891 Personal history of nicotine dependence
CPT/HCPCS: 96372; J2182

== ENCOUNTER → 2025-02-27 14:53 | Outpatient (REF) | payer MEDICARE, BC, SELFPAY | LOC: RAD 14:53 | PROVIDERS: ATTENDING PHYSICIAN Nurse Practitioner Adult Health; FAMILY PHYSICIAN Family Medicine | DX: J44.9 Chronic obstructive pulmonary disease, unspecified (principal) | CPT/HCPCS: 71046 ==

== ENCOUNTER 2025-03-14 13:45 | Outpatient (RCR) | payer MEDICARE, BC, SELFPAY ==
[2025-03-14 13:40] VITALS: BP 131/53
[2025-03-14] MEDS: NUCALA 1 MG SC (14:07)
== END 2025-03-15 10:53 | disposition home or self-care (01) ==
LOC: OID 13:45
PROVIDERS: ATTENDING PHYSICIAN Internal Medicine Critical Care Medicine; FAMILY PHYSICIAN Family Medicine
DX: J45.40 Moderate persistent asthma, uncomplicated (principal); J44.9 Chronic obstructive pulmonary disease, unspecified; Z87.891 Personal history of nicotine dependence
CPT/HCPCS: 96372; J2182

== ENCOUNTER 2025-04-11 13:43 | Outpatient (RCR) | payer MEDICARE, BC, SELFPAY ==
[2025-04-11 13:50] VITALS: BP 112/68
[2025-04-11] MEDS: NUCALA 1 MG SC (14:06)
== END 2025-04-12 10:06 | disposition home or self-care (01) ==
LOC: OID 13:43
PROVIDERS: ATTENDING PHYSICIAN Internal Medicine Critical Care Medicine; FAMILY PHYSICIAN Family Medicine
DX: J45.40 Moderate persistent asthma, uncomplicated (principal); J44.9 Chronic obstructive pulmonary disease, unspecified
CPT/HCPCS: 96372; J2182

== ENCOUNTER 2025-04-24 13:26 | Inpatient (IN) | payer MEDICARE, BC, SELFPAY ==
[2025-04-24 10:01] VITALS: BP 109/70
--- NOTE | 2025-04-24 10:17 | ED.GENMED ---
History of Present Illness
<Zia Saleh PA-C - Last Filed: 04/24/25 12:13>
General
Chief Complaint: Breathing Problem
Source: patient
Exam Limitations: none
Time Seen by Provider: 04/24/25 10:17
History of Present Illness
History of Present Illness:
70-year-old female chronically on 3 L of home oxygen presents with increased work of breathing and shortness of breath. She denies chest pain. She states this happened over 2 days ago. She is trying nebulizers at home without relief. She denies
any leg swelling. She is not anticoagulated but no chest pain. No other complaints
Past History
<Zia Saleh PA-C - Last Filed: 04/24/25 12:13>
Past History
ED Past Medical History: Asthma, COPD, GERD, Hypothyroidism and Other (Acute pancreatitis November 2015. Gastritis, Washington's esophagus)
ED Past Surgical History: Orthopedic
Patient has exhibited threatening behavior?: No
PSI?: No
Social History
Tobacco: Former smoker
Alcohol: Occasional
Drug: None
Personal:
Living: with family
Employment: Retired
Family History
Family History: Other; Negative Diabetes, Hypertension or CAD
Phy Exam
<TYRA Mcdonough Last Filed: 04/24/25 12:13>
Physical Exam
Physical Exam:
General: Well-developed female with increased work of breathing
HEENT: Normal cephalic atraumatic
Heart: Regular rate and rhythm
Lungs: Diffuse inspiratory and expiratory wheeze.
Extremities: No edema or cyanosis
Skin warm no rash
Scores
<TYRA Mcdonough Last Filed: 04/24/25 12:13>
Heart Failure Risk
Heart Failure Risk Score: Not Applicable
Course
<Zia Saleh PA-C - Last Filed: 04/24/25 12:13>
Orders/Labs/Results
Orders:
Orders
04/24/25 10:02
Electrocardiogram (*1) Urgent
Reason for Study: Shortness of Breath
EKG- Treatment ONCE
04/24/25 10:30
Dexamethasone Sod Phosphate [Decadron] 10 mg IV NOW STA
Ipratropium/Albuterol Sulfate [Duoneb] 3 ml INH R NOW STA
04/24/25 10:31
CR Chest Portable - 1 View Urgent
Comment:
Reason For Exam: sob
Reason Study Needs to be Portable: Patient Unstable
04/24/25 10:45
Complete Blood Count/With Diff Urgent
Comprehensive Metabolic Panel Urgent
NT-proBNP Urgent
04/24/25 12:03
Azithromycin 500 mg/250 ml [Zithromax Infusion] 500 mg in 250 ml IV NOW
CefTRIAXone [Rocephin] 1,000 mg IV NOW STA
04/24/25 12:21
Blood Culture Q30M
MARGARITO Source: Blood/Venous
Specimen Description:
Blood Culture Q30M
MARGARITO Source: Blood/Venous
Specimen Description:
Abnormal Lab Results
04/24/25
10:45
WBC 19.6 H 10^3/uL
(4.8-10.8)
MCHC 32.2 L g/dL
(33.0-37.0)
MPV 10.8 H fL
(7.4-10.4)
Abs Immat Gran (auto) 0.1 H 10^3/uL
(0-0.05)
Absolute Neuts (auto) 18.2 H 10^3/uL
(1.4-6.5)
Absolute Lymphs (auto) 0.5 L 10^3/uL
(1.2-3.4)
Absolute Monos (auto) 0.8 H 10^3/uL
(0.1-0.6)
Immature Gran % 0.7 H %
(0-0.5)
Neutrophils % 92.8 H %
(42.2-75.2)
Lymphocytes % 2.3 L %
(20.5-51.1)
Sodium 132 L mmol/L
(135-145)
Creatinine 0.4 L mg/dL
(0.6-1.0)
Glucose 276 H mg/dl
(70-99)
04/24/25 10:45
04/24/25 10:45
Vital Signs
Initial and Last Documented VS:
Initial Vital Signs
Temp Pulse Resp BP Pulse Ox
98.3 F 88 18 109/70 94
04/24/25 10:01 04/24/25 10:01 04/24/25 10:01 04/24/25 10:01 04/24/25 10:01
Last Documented Vital Signs
Temp Pulse Resp BP Pulse Ox
98.3 F 88 18 109/70 96
04/24/25 10:01 04/24/25 10:01 04/24/25 10:01 04/24/25 10:01 04/24/25 12:00
<Jose Marshall, DO - Last Filed: 04/24/25 12:51>
Orders/Labs/Results
Orders:
Orders
04/24/25 10:02
Electrocardiogram (*1) Urgent
Reason for Study: Shortness of Breath
EKG- Treatment ONCE
04/24/25 10:30
Dexamethasone Sod Phosphate [Decadron] 10 mg IV NOW STA
Ipratropium/Albuterol Sulfate [Duoneb] 3 ml INH R NOW STA
04/24/25 10:31
CR Chest Portable - 1 View Urgent
Comment:
Reason For Exam: sob
Reason Study Needs to be Portable: Patient Unstable
04/24/25 10:45
Complete Blood Count/With Diff Urgent
Comprehensive Metabolic Panel Urgent
NT-proBNP Urgent
04/24/25 12:03
Azithromycin 500 mg/250 ml [Zithromax Infusion] 500 mg in 250 ml IV NOW
CefTRIAXone [Rocephin] 1,000 mg IV NOW STA
04/24/25 12:21
Blood Culture Q30M
MARGARITO Source: Blood/Venous
Specimen Description:
Blood Culture Q30M
MARGARITO Source: Blood/Venous
Specimen Description:
Abnormal Lab Results
04/24/25
10:45
WBC 19.6 H 10^3/uL
(4.8-10.8)
MCHC 32.2 L g/dL
(33.0-37.0)
MPV 10.8 H fL
(7.4-10.4)
Abs Immat Gran (auto) 0.1 H 10^3/uL
(0-0.05)
Absolute Neuts (auto) 18.2 H 10^3/uL
(1.4-6.5)
Absolute Lymphs (auto) 0.5 L 10^3/uL
(1.2-3.4)
Absolute Monos (auto) 0.8 H 10^3/uL
(0.1-0.6)
Immature Gran % 0.7 H %
(0-0.5)
Neutrophils % 92.8 H %
(42.2-75.2)
Lymphocytes % 2.3 L %
(20.5-51.1)
Sodium 132 L mmol/L
(135-145)
Creatinine 0.4 L mg/dL
(0.6-1.0)
Glucose 276 H mg/dl
(70-99)
04/24/25 10:45
04/24/25 10:45
Vital Signs
Initial and Last Documented VS:
Initial Vital Signs
Temp Pulse Resp BP Pulse Ox
98.3 F 88 18 109/70 94
04/24/25 10:01 04/24/25 10:01 04/24/25 10:01 04/24/25 10:01 04/24/25 10:01
Last Documented Vital Signs
Temp Pulse Resp BP Pulse Ox
98.3 F 88 18 109/70 96
04/24/25 10:01 04/24/25 10:01 04/24/25 10:01 04/24/25 10:01 04/24/25 12:00
<Zia Saleh PA-C - Last Filed: 04/24/25 12:13>
MDM/Problems Addressed
Differential Diagnosis Includes:
Patient here with increased work of breathing and shortness of breath. Consider COPD flare versus pneumonia versus CHF
Patient chronically on 3 L currently on 3 L but is tachypneic. Will try DuoNeb and Decadron. Chest x-ray ordered labs pending.
<Zia Saleh PA-C - Last Filed: 04/24/25 12:13>
*Pulse Oximetry
SaO2: 94
Nasal Cannula flow liters per minute: 3
Patient hypoxic: no
*Critical Care Note
Total Time (30-74mins, 75-104mins- exclusive of procedures): Not Applicable
<Zia Saleh PA-C - Last Filed: 04/24/25 12:13>
Update Note
Update Note:
EKG shows sinus rhythm with sinus arrhythmia with a rate of 91 and no ischemic changes
Patient reevaluated multiple times. Chest x-ray personally reviewed shows evidence possibly of right lower lobe pneumonia. White blood cell count is 19.2. Blood cultures ordered. Will order Rocephin and Zithromax. Discussed with emergency room
attending saw the patient. Will admit to hospital for respiratory failure likely secondary to multifactorial issues including COPD and pneumonia.
ED Attending Note
<Zia Saleh PA-C - Last Filed: 04/24/25 12:13>
-
Portions of this chart may have been created with voice recognition software.� Occasional wrong word or��sound alike� substitutions may have occurred due to the inherent limitations of voice recognition software.
<Jose Marshall DO - Last Filed: 04/24/25 12:51>
ED Attending Note
Patient seen and examined by attending physician: Yes
I performed a history and physical exam of patient and discussed management with resident, I reviewed resident's note and agree with documented findings and plan of care.: Yes
ED Attending Note:
I have reviewed and agree with history treatment plan by Zia Saleh PA-C. My exam revealed
Physical Exam
General: mild respiratory distress
Neck: supple. no meningeal signs. normal posterior pharynx
Heart: s1/s2 regular rate and rhythm, no murmur. equal radial
pulses.
HEENT: Pupils equal round reactive to light, EOMI
Lungs: mild respiratory distress. wheezing bilaterally
Abdomen: normal bowel sounds. not tender. no CVAT
Neuro: alert and oriented. no focal neurological deficits cranial nerves II through XII intact
Skin: no rash
Psychiatric: well kept. interactive and cooperative
Extremities: no edema. no calf tenderness. negative homans. good distal pulses
70-year-old female with right lower lobe pneumonia and COPD. Treat with Rocephin and Zithromax. Admit to hospitalist. Decadron and DuoNebs given.
Discharge Plan
Departure
Patient Disposition: Admit
Date of Disposition: 04/24/25
Time of Disposition: 12:12
Presentation/result/management discussed w/ accepting MD/DO: Hospitalist
Discharge Problem:
COPD exacerbation, Pneumonia
Prescriptions:
No Action
montelukast 10 MG tablet
10 mg PO DAILY
levothyroxine [Synthroid] 137 MCG tablet
137 mcg PO DAILY
atorvastatin 10 MG tablet
10 mg PO DAILY
metformin 500 mg Tablet Extended Release 24 Hr
500 mg PO TID
guaifenesin [Mucinex] 600 mg tablet extended release 12hr
600 mg PO DAILY
furosemide [Lasix] 20 mg Tablet
20 mg PO DAILY
albuterol sulfate 2.5 mg /3 mL (0.083 %) Solution For Nebulization
2.5 mg inhalation R BID
budesonide 0.5 mg/2 mL Suspension For Nebulization
0.5 mg INHALATION R BID
albuterol sulfate 90 mcg/actuation Hfa Aerosol Inhaler
2 puff INHALATION R Q4HPRN PRN (Reason: sob)
cholecalciferol (vitamin D3) 25 mcg (1,000 unit) Tablet
25 mcg PO DAILY
Nucala 100 mg/mL Auto-Injector
100 mg SC QMONTH
therapeutic multivitamin Tablet
1 tab PO DAILY
Trelegy Ellipta 200-62.5-25 mcg Blister With Device
1 inh INHALATION R DAILY
pantoprazole 40 mg tablet,delayed release (DR/EC)
40 mg PO DAILY
Dupixent Pen 300 mg/2 mL Pen Injector
300 mg SC Q2W
azithromycin 250 mg Tablet
250 mg PO Q48H
prednisone 20 mg Tablet
20 mg PO DAILY
Referrals:
Gayathri Tena MD [Family Provider, Family Practice]
Interventions
Interventions:
*Risk Screen - Suicide Last Done: 04/24/25 10:02
*General Assessment Last Done: 04/24/25 12:12
*Neglect/Abuse Screening Last Done: 04/24/25 10:02
*ED- Fall Risk Assessment Last Done: 04/24/25 12:12
ED- Cardiac Assessment Last Done: 04/24/25 11:00
ED- Pulmonary Assessment Last Done: 04/24/25 11:00
Discharge Date and Time
Print Language: UZBEK
[2025-04-24] MEDS: DUONEB 3 ML INH ×3 (10:43→19:10)
[2025-04-24] MEDS: DECADRON 10 MG IV (10:44)
[2025-04-24 11:01] LABS: Hematocrit 38.5 % (37.0-47.0); Hemoglobin 12.4 g/dL (12.0-16.0); Mean Corp Hgb Conc. 32.2 g/dL (33.0-37.0); Mean Corpuscular Volume 85.6 fL (81.0-99.0); Nucleated Red Blood Cells % 0 %; Platelet Count 256 10^3/uL (130-400); Red Cell Dist. Width 14.2 % (11.5-14.5)
[2025-04-24 11:15] LABS: ALT (SGPT) 17 U/L (0-35); AST (SGOT) 20 U/L (14-36); Albumin 4.0 g/dl (3.5-5.0); Alkaline Phosphatase 75 U/L (38-126); Blood Urea Nitrogen 10 mg/dl (7-17); Calcium 9.4 mg/dl (8.4-10.2); Carbon Dioxide 29 mmol/L (22-30); Chloride 100 mmol/L (98-107); Glucose 276 mg/dl (70-99); Potassium 4.5 mmol/L (3.5-5.1); Sodium 132 mmol/L (135-145); Total Protein 6.5 g/dl (6.3-8.2); eGFR > 60.00
[2025-04-24] MEDS: ZITHROMAX INFUSION 250 IV (12:52)
[2025-04-24] MEDS: ROCEPHIN 1000 MG IV (12:52)
--- NOTE | 2025-04-24 12:55 | HPS.HSE ---
Family Physician
-
Family Physician: Gayathri Tena
Chief Complaint
-
Shortness of breath, wheezing
History of Present Illness
70-year-old female with oxygen dependent COPD, here complaining of increasing shortness of breath, cough, wheezing for the past 48 hours. Denies any sick contacts. Denies fevers or chills at home.
Does have a chronic cough, denies any changes in the nature of the cough.
Does have chronic orthopnea.
Medical History
Past Medical History
Past Medical History: Reports Other
Additional Past Medical History:
Very severe COPD
DM 2
Hyperlipidemia
Hypothyroidism
GERD
[place]'s esophagus
Chronic venous insufficiency
ISHMAEL -CPAP intolerant
Atopic dermatitis
Chronic heart failure preserved EF
Past Surgical History: Reports Cholecystectomy and
Social History
Tobacco: Former Smoker
Alcohol: Occasional
Drug: None
Personal:
Living: With Family
Family History
Family History: Not pertinent
Allergies / Home Medications
Allergies reflects when Allergies were last updated in [facility].
Home Medications with original date entered in [facility]
Allergy/Medication List:
Allergies
Allergy/AdvReac Type Severity Reaction Status Date / Time
latex Allergy Rash Verified 04/11/25 14:00
levofloxacin (From Levaquin) Allergy Achilles Verified 04/11/25 14:00
Tendonitis
Penicillins Allergy Full-body Verified 04/11/25 14:00
rash;
tolerated
ceftriaxone
and
cefepime
Home Medications
montelukast 10 mg tablet 10 mg PO DAILY Lung/breathing issues 07/12/11
levothyroxine 137 mcg tablet (Synthroid) 137 mcg PO DAILY Thyroid 06/09/18
atorvastatin 10 mg tablet 10 mg PO DAILY High cholesterol 04/29/21
metformin 500 mg tablet,extended release 24 hr 500 mg PO TID Diabetes 04/15/22
guaifenesin 600 mg tablet, extended release 12 hr (Mucinex) 600 mg PO DAILY Congestion 07/15/22
furosemide 20 mg tablet (Lasix) 20 mg PO DAILY Fluid Retention/Swelling 09/18/22
albuterol sulfate 2.5 mg/3 mL (0.083 %) solution for nebulization 2.5 mg inhalation R BID Lung/Breathing Issues 11/19/23
albuterol sulfate 90 mcg/actuation aerosol inhaler 2 puff inhalation R Q4HPRN PRN sob 11/19/23
budesonide 0.5 mg/2 mL suspension for nebulization 0.5 mg inhalation R BID Lung/Breathing Issues 11/19/23
cholecalciferol (vitamin D3) 25 mcg (1,000 unit) tablet 25 mcg PO DAILY Supplement 11/19/23
mepolizumab 100 mg/mL subcutaneous auto-injector (Nucala) 100 mg SC QMONTH Lung/Breathing Issues 11/19/23
fluticasone fur. 200 mcg-umeclid 62.5 mcg-vilant 25 mcg inhalat.powder (Trelegy Ellipta) 1 inh inhalation R DAILY Lung/Breathing Issues 01/05/25
pantoprazole 40 mg tablet,delayed release 40 mg PO DAILY Gastrointestinal Issue 01/05/25
therapeutic multivitamin 1 tab PO DAILY Supplement 01/05/25
dupilumab 300 mg/2 mL subcutaneous pen injector (Dupixent) 300 mg SC Q2W Lung/Breathing Issues 03/14/25
azithromycin 250 mg tablet 250 mg PO Q48H Lung/Breathing Issues 04/24/25
prednisone 20 mg tablet 20 mg PO DAILY Anti-Inflammatory 04/24/25
Review of Systems
-
History Source: Patient
A 12 point ROS was completed and negative except as noted: Yes
Physical Exam
Vital Signs
Vital Signs
Temp Pulse Resp BP Pulse Ox
98.3 F 88 18 109/70 96
04/24/25 10:01 04/24/25 10:01 04/24/25 10:01 04/24/25 10:01 04/24/25 12:00
Physical Exam
General: Well Developed, Well Nourished and Respiratory Distress
HEENT: NormoCephalic, Anicteric and Moist mucous membranes
Respiratory: Wheezes
Cardiac: S1/S2 and Regular Rhythm
Breast: Deferred by me
GI: Soft, Non Tender and Non Distended
Genito-urinary: Deferred by me
Musculoskeletal: No Clubbing, No Cyanosis and No Edema
Skin: Warm and Dry
Neuro: AO x 3
Hematologic/Lymphatic: No Lymphadenopathy
Psych: Calm
Laboratory Results
-
04/24/25 10:45
04/24/25 10:45
Laboratory Results
Total Bilirubin 0.9 mg/dl (0.2-1.3) 04/24/25 10:45
AST 20 U/L (14-36) 04/24/25 10:45
ALT 17 U/L (0-35) 04/24/25 10:45
Alkaline Phosphatase 75 U/L (38-126) 04/24/25 10:45
Impression/Plan
-
Acute on chronic hypoxic respiratory failure -suspect due to acute COPD exacerbation. Rule out community-acquired pneumonia. Heart failure exacerbation possible but seems clinically less likely.
At baseline uses 3 L nasal cannula oxygen continuously at home. Currently stable on 3 L. Monitor closely.
Check COVID, influenza.
Admit to MedSurg.
Acute COPD exacerbation -continue inhaled budesonide. Substitute Advair for Trelegy as it is nonformulary. DuoNebs as needed and [id number].
Systemic steroids.
Mucinex. Incentive spirometer.
Community-acquired pneumonia -presumed diagnosis. 1 view chest x-ray shows new airspace opacity over the lateral right lower lung.
Leukocytosis noted. Afebrile.
Continue ceftriaxone, azithromycin. Check two-view chest x-ray tomorrow. Blood cultures have been ordered.
Pseudo-hyponatremia -sodium 132, glucose 276, corrected sodium 135.
Hypothyroidism -continue levothyroxine.
DM2 with hyperglycemia -continue metformin. Low resistance NovoLog scale. Check hemoglobin A1c.
Chronic heart failure preserved EF -BNP 1070. Clinically looks euvolemic. Resume home doses of furosemide.
ISHMAEL -CPAP intolerant.
Full code
--- NOTE | 2025-04-24 13:14 | EDCM ---
Reviewed chart and met with pt bedside in ED. Pt lives with her in [address], [address].
Independent in ADLs, personal care and ambulation at baseline. Occasionally uses RW.
Has home oxygen from [employer], wears 3L NC, has concentrator, tanks and portable concentrator.
Confirms prescription coverage.
No hx VN or SNF.
PCP: Gayathri Tena
Pharmacy: [facility]
Disposition pending ongoing medical evaluation, CM will continue to follow for all discharge planning needs.
[2025-04-24 13:32] LABS: COVID-19 Antigen Negative (Negative)
--- NOTE | 2025-04-24 15:33 | PTCARENOTE ---
04/24- Patient transferred and oriented to unit without issue. AAOX3; Independent mobility; 3L O2. Skin CDI. Denies any current needs at this time. .
[2025-04-24 16:00] VITALS: BP 109/74
[2025-04-24 16:15] VITALS: BMI 26.8
[2025-04-24 17:06] LABS: Glucose - Point of Care 298 mg/dl (70-99)
[2025-04-24] MEDS: LOVENOX 40 MG SC (17:09)
[2025-04-24] MEDS: GLUCOPHAGE XR EXTENDED RELEASE 500 MG PO ×2 (17:10→21:53)
[2025-04-24] MEDS: NOVOLOG FLEXPEN-LOW RESISTANCE 3 UNITS SC (17:11)
[2025-04-24] MEDS: ADVAIR HFA 230/21 MCG INHALER 2 PUFF INH (19:10)
[2025-04-24] MEDS: PULMICORT INH (19:10)
[2025-04-24] MEDS: MUCINEX 600 MG PO (19:52)
[2025-04-24 21:18] LABS: Glucose - Point of Care 376 mg/dl (70-99)
[2025-04-24] MEDS: NOVOLOG FLEXPEN 5 UNITS SC (21:53)
[2025-04-24 22:34] VITALS: BP 127/22
[2025-04-25 01:08] LABS: Glucose - Point of Care 365 mg/dl (70-99)
[2025-04-25] MEDS: NOVOLOG FLEXPEN 5 UNITS SC (01:40)
[2025-04-25 04:00] LABS: Glucose - Point of Care 171 mg/dl (70-99)
[2025-04-25] MEDS: SYNTHROID 137 MCG PO (06:35)
[2025-04-25] MEDS: DUONEB 3 ML INH ×4 (07:31→19:35)
[2025-04-25] MEDS: ADVAIR HFA 230/21 MCG INHALER 2 PUFF INH ×2 (07:31→19:35)
[2025-04-25] MEDS: PULMICORT 0.5 MG INH ×2 (07:31→19:35)
[2025-04-25 07:41] LABS: Hematocrit 37.8 % (37.0-47.0); Hemoglobin 12.1 g/dL (12.0-16.0); Mean Corp Hgb Conc. 32.0 g/dL (33.0-37.0); Mean Corpuscular Volume 88.5 fL (81.0-99.0); Nucleated Red Blood Cells % 0 %; Platelet Count 279 10^3/uL (130-400); Red Cell Dist. Width 14.1 % (11.5-14.5)
[2025-04-25] MEDS: PROTONIX 40 MG PO (07:49)
[2025-04-25] MEDS: GLUCOPHAGE XR EXTENDED RELEASE 500 MG PO ×3 (07:49→21:35)
[2025-04-25] MEDS: MUCINEX 600 MG PO ×2 (07:49→20:09)
[2025-04-25] MEDS: LASIX 20 MG PO (07:49)
[2025-04-25] MEDS: DECADRON 10 MG IV (07:49)
[2025-04-25] MEDS: VITAMIN D3 (cholecalciferol) 25 MCG PO (07:49)
[2025-04-25] MEDS: SINGULAIR 10 MG PO (07:49)
[2025-04-25] MEDS: LIPITOR 10 MG PO (07:49)
[2025-04-25] MEDS: THERAGRAN 1 TABLET PO (07:49)
[2025-04-25] MEDS: ZITHROMAX 500 MG PO (07:49)
[2025-04-25 07:50] LABS: Glucose - Point of Care 131 mg/dl (70-99)
[2025-04-25 08:02] VITALS: BP 129/74
[2025-04-25 08:37] LABS: Glucose - Point of Care 168 mg/dl (70-99)
[2025-04-25 09:10] LABS: Glucose - Point of Care 223 mg/dl (70-99)
[2025-04-25] MEDS: NOVOLOG FLEXPEN-LOW RESISTANCE 2 UNITS SC (09:10)
[2025-04-25 10:06] LABS: Glycohemoglobin (HgbA1c) 7.9 % (4.0-5.9)
[2025-04-25 12:35] LABS: Glucose - Point of Care 263 mg/dl (70-99)
--- NOTE | 2025-04-25 12:39 | W.PN.HOSP.TC ---
Today's Communication/Plan
-
Continue current care
Assessment / Plan
Assessment / Plan
Gen-AAOx3, NAD
HEENT-NC, AT, anicteric, clear oral mm
Neck-supple
CV-reg, no M, +S1/S2
Lungs-bilateral expiratory wheezing
Abd-soft, NT, ND
Ext-no edema
Musculoskeletal-no cyanosis, clubbing
Skin-warm and dry
Neuro-grossly non-focal
Psych-calm, cooperative
Acute on chronic hypoxic respiratory failure -suspect due to acute COPD exacerbation. Pneumonia appears to be less likely. Heart failure exacerbation possible but seems clinically less likely.
At baseline uses 3 L nasal cannula oxygen continuously at home. Currently stable on 3 L. Monitor closely.
Negative COVID, influenza.
Acute COPD exacerbation -continue inhaled budesonide. Substitute Advair for Trelegy as it is non-formulary. DuoNebs as needed and [id number].
Clinically improving overnight, a little less wheezy on exam. Leukocytosis improving. Afebrile.
Baseline severe COPD requiring continuous home oxygen. On Nucala subcutaneously every month, Dupixent subcu every 2 weeks.
Followed by [facility].
Systemic steroids.
Mucinex. Incentive spirometer.
Two-view chest x-ray today shows right lower lobe infiltrate to be less confidently identified, making focal airspace disease such as pneumonia unlikely. Can discontinue further ceftriaxone, continue azithromycin. Discussed with patient.
Pseudo-hyponatremia -sodium 132, glucose 276, corrected sodium 135.
Hypothyroidism -continue levothyroxine.
DM2 with hyperglycemia -continue metformin. Low resistance NovoLog scale. Hemoglobin A1c 7.9%. Glucose 131 this morning, 263 at lunchtime.
Expect steroid induced hyperglycemia.
Chronic heart failure preserved EF -BNP 1070. Clinically looks euvolemic. Resume home doses of furosemide.
Hyperlipidemia -atorvastatin.
ISHMAEL -CPAP intolerant.
Full code
Anticipated Discharge: 24 - 48 hours
Subjective/Interval History
-
Date of Service: April 25, 2025
Patient seen and examined, feeling a little bit better, less short of breath today. No new complaints.
Objective Data
-
Labs:
Laboratory Results
04/25/25
07:04
WBC 13.3 H
Hgb 12.1
Hct 37.8
Plt Count 279
Vital Signs:
Vital Signs
Temp Pulse Resp BP Pulse Ox
98.1 F 82 14 129/74 96
04/25/25 08:02 04/25/25 11:16 04/25/25 11:16 04/25/25 08:02 04/25/25 08:02
I&O
04/24/25 04/25/25 04/26/25
06:59 06:59 06:59
Intake Total 600 / 600
Balance 600 / 600
Review of Systems
-
History Source: Patient
All other systems: Reviewed and negative
[2025-04-25] MEDS: NOVOLOG FLEXPEN-LOW RESISTANCE 3 UNITS SC (12:41)
[2025-04-25] MEDS: ROCEPHIN 1000 MG IV (12:44)
--- NOTE | 2025-04-25 14:38 | CM ---
COPD exacerbation, B/L expiratory wheeze. On 3L NC which is baseline at home. Discharge POC: Anticipate home with no additional needs. Has O2 at home.
[2025-04-25 15:37] VITALS: BP 133/67
[2025-04-25 16:32] LABS: Glucose - Point of Care 329 mg/dl (70-99)
[2025-04-25] MEDS: NOVOLOG FLEXPEN-LOW RESISTANCE 4 UNITS SC (17:02)
[2025-04-25] MEDS: LOVENOX 40 MG SC (17:03)
[2025-04-25 21:12] LABS: Glucose - Point of Care 334 mg/dl (70-99)
[2025-04-25] MEDS: NOVOLOG FLEXPEN 4 UNITS SC (21:35)
[2025-04-25 23:00] VITALS: BP 135/69
[2025-04-26 00:08] LABS: Glucose - Point of Care 227 mg/dl (70-99)
[2025-04-26] MEDS: SYNTHROID 137 MCG PO (05:26)
[2025-04-26 07:30] VITALS: BP 136/77
[2025-04-26 07:36] LABS: Hematocrit 38.4 % (37.0-47.0); Hemoglobin 12.4 g/dL (12.0-16.0); Mean Corp Hgb Conc. 32.3 g/dL (33.0-37.0); Mean Corpuscular Volume 88.5 fL (81.0-99.0); Nucleated Red Blood Cells % 0 %; Platelet Count 321 10^3/uL (130-400); Red Cell Dist. Width 14.0 % (11.5-14.5)
[2025-04-26 08:09] LABS: Glucose - Point of Care 122 mg/dl (70-99)
[2025-04-26 08:20] LABS: Blood Urea Nitrogen 16 mg/dl (7-17); Calcium 9.6 mg/dl (8.4-10.2); Carbon Dioxide 30 mmol/L (22-30); Chloride 102 mmol/L (98-107); Estimated Creatinine Clearance 86 ml/min; Glucose 104 mg/dl (70-99); Potassium 4.2 mmol/L (3.5-5.1); Sodium 137 mmol/L (135-145); eGFR > 60.00
[2025-04-26] MEDS: PULMICORT 0.5 MG INH ×2 (08:32→20:24)
[2025-04-26] MEDS: DUONEB 3 ML INH ×4 (08:32→20:24)
[2025-04-26] MEDS: ADVAIR HFA 230/21 MCG INHALER 2 PUFF INH ×2 (08:32→20:24)
[2025-04-26] MEDS: NOVOLOG FLEXPEN-LOW RESISTANCE SC (08:57)
[2025-04-26] MEDS: VITAMIN D3 (cholecalciferol) 25 MCG PO (08:58)
[2025-04-26] MEDS: LIPITOR 10 MG PO (08:58)
[2025-04-26] MEDS: PROTONIX 40 MG PO (08:58)
[2025-04-26] MEDS: MUCINEX 600 MG PO ×2 (08:58→21:03)
[2025-04-26] MEDS: ZITHROMAX 500 MG PO (08:58)
[2025-04-26] MEDS: THERAGRAN 1 TABLET PO (08:58)
[2025-04-26] MEDS: SINGULAIR 10 MG PO (08:58)
[2025-04-26] MEDS: DECADRON 10 MG IV (08:58)
[2025-04-26] MEDS: LASIX 20 MG PO (08:58)
[2025-04-26] MEDS: GLUCOPHAGE XR EXTENDED RELEASE 500 MG PO ×3 (08:58→21:03)
--- NOTE | 2025-04-26 10:57 | W.PN.HOSP.TC ---
Today's Communication/Plan
-
Add Lantus
Continue current care
Assessment / Plan
Assessment / Plan
Gen-AAOx3, NAD
HEENT-NC, AT, anicteric, clear oral mm
Neck-supple
CV-reg, no M, +S1/S2
Lungs-bilateral expiratory wheezing
Abd-soft, NT, ND
Ext-no edema
Musculoskeletal-no cyanosis, clubbing
Skin-warm and dry
Neuro-grossly non-focal
Psych-calm, cooperative
Acute on chronic hypoxic respiratory failure -suspect due to acute COPD exacerbation. Pneumonia appears to be less likely. Heart failure exacerbation possible but seems clinically less likely.
At baseline uses 3 L nasal cannula oxygen continuously at home. Currently stable on 3 L. Monitor closely.
Negative COVID, influenza.
Acute COPD exacerbation -continue inhaled budesonide. Substitute Advair for Trelegy as it is non-formulary. DuoNebs as needed and [id number].
Clinically improving overnight, a little less wheezy on exam. Leukocytosis improving. Afebrile.
Baseline severe COPD requiring continuous home oxygen. On Nucala subcutaneously every month, Dupixent subcu every 2 weeks.
Followed by [place] [facility].
Systemic steroids.
Mucinex. Incentive spirometer.
Two-view chest x-ray today shows right lower lobe infiltrate to be less confidently identified, making focal airspace disease such as pneumonia unlikely. Completed 3-day course of azithromycin.
Pseudo-hyponatremia -resolved.
Hypothyroidism -continue levothyroxine.
DM2 with hyperglycemia -continue metformin. Low resistance NovoLog scale. Hemoglobin A1c 7.9%. Glucose 104 this morning, but daytime glucoses yesterday up to 334.
Expect steroid induced hyperglycemia.
Add Lantus insulin daily.
Chronic heart failure preserved EF -BNP 1070. Clinically looks euvolemic. Resume home doses of furosemide.
Hyperlipidemia -atorvastatin.
ISHMAEL -CPAP intolerant.
Full code
Dispo -patient still wheezing and she does not feel ready for discharge yet. Continue current care.
Anticipated Discharge: > 48 hours
Subjective/Interval History
-
Date of Service: April 26, 2025
Patient seen and examined, slowly starting to feel better. Still wheezing.
Objective Data
-
Labs:
Laboratory Results
04/26/25
07:18
WBC 13.9 H
Hgb 12.4
Hct 38.4
Plt Count 321
Sodium 137
Potassium 4.2
Chloride 102
Carbon Dioxide 30
BUN 16
Creatinine 0.5 L
Glucose 104 H
Calcium 9.6
Vital Signs:
Vital Signs
Temp Pulse Resp BP Pulse Ox
97.5 F 84 16 136/77 98
04/26/25 07:30 04/26/25 08:34 04/26/25 08:34 04/26/25 07:30 04/26/25 08:45
I&O
04/25/25 04/26/25 04/27/25
06:59 06:59 06:59
Intake Total 600 / 600 1320 / 1320
Balance 600 / 600 1320 / 1320
Review of Systems
-
History Source: Patient
All other systems: Reviewed and negative
[2025-04-26 12:32] LABS: Glucose - Point of Care 207 mg/dl (70-99)
[2025-04-26] MEDS: LANTUS 0.12 UNITS SC (12:46)
[2025-04-26] MEDS: NOVOLOG FLEXPEN-LOW RESISTANCE 2 UNITS SC (12:47)
[2025-04-26 15:24] VITALS: BP 127/72
[2025-04-26 17:14] LABS: Glucose - Point of Care 346 mg/dl (70-99)
[2025-04-26] MEDS: NOVOLOG FLEXPEN-LOW RESISTANCE 4 UNITS SC (17:44)
[2025-04-26] MEDS: LOVENOX 40 MG SC (17:45)
[2025-04-26 20:47] LABS: Glucose - Point of Care 229 mg/dl (70-99)
[2025-04-26 23:12] VITALS: BP 140/81
[2025-04-27] MEDS: SYNTHROID 137 MCG PO (06:24)
[2025-04-27 07:30] VITALS: BP 145/77
[2025-04-27] MEDS: ADVAIR HFA 230/21 MCG INHALER 2 PUFF INH (08:05)
[2025-04-27] MEDS: PULMICORT 0.5 MG INH (08:05)
[2025-04-27] MEDS: DUONEB 3 ML INH ×3 (08:05→15:23)
[2025-04-27 08:26] LABS: Glucose - Point of Care 103 mg/dl (70-99)
[2025-04-27] MEDS: LANTUS 0.12 UNITS SC (08:26)
[2025-04-27] MEDS: PROTONIX 40 MG PO (08:26)
[2025-04-27] MEDS: THERAGRAN 1 TABLET PO (08:27)
[2025-04-27] MEDS: GLUCOPHAGE XR EXTENDED RELEASE 500 MG PO ×2 (08:27→16:21)
[2025-04-27] MEDS: MUCINEX 600 MG PO (08:27)
[2025-04-27] MEDS: LASIX 20 MG PO (08:27)
[2025-04-27] MEDS: SINGULAIR 10 MG PO (08:27)
[2025-04-27] MEDS: LIPITOR 10 MG PO (08:28)
[2025-04-27] MEDS: VITAMIN D3 (cholecalciferol) 25 MCG PO (08:28)
[2025-04-27] MEDS: DECADRON 10 MG IV (08:28)
[2025-04-27] MEDS: NOVOLOG FLEXPEN-LOW RESISTANCE SC ×2 (08:29→17:34)
--- NOTE | 2025-04-27 08:36 | W.PN.HOSP.TC ---
Today's Communication/Plan
-
Ambulate
Assessment / Plan
Assessment / Plan
Gen-AAOx3, NAD
HEENT-NC, AT, anicteric, clear oral mm
Neck-supple
CV-reg, no M, +S1/S2
Lungs-bilateral expiratory wheezing, improving
Abd-soft, NT, ND
Ext-no edema
Musculoskeletal-no cyanosis, clubbing
Skin-warm and dry
Neuro-grossly non-focal
Psych-calm, cooperative
Acute on chronic hypoxic respiratory failure -suspect due to acute COPD exacerbation. Pneumonia appears to be less likely. Heart failure exacerbation possible but seems clinically less likely.
At baseline uses 3 L nasal cannula oxygen continuously at home. Currently stable on 3 L. Monitor closely.
Negative COVID, influenza.
Acute COPD exacerbation -continue inhaled budesonide. Substitute Advair for Trelegy as it is non-formulary. DuoNebs as needed and [id number].
Clinically improving overnight, a little less wheezy on exam. Leukocytosis improving. Afebrile.
Baseline severe COPD requiring continuous home oxygen. On Nucala subcutaneously every month, Dupixent subcu every 2 weeks.
Followed by [place] [facility].
Systemic steroids.
Mucinex. Incentive spirometer.
Two-view chest x-ray today shows right lower lobe infiltrate to be less confidently identified, making focal airspace disease such as pneumonia unlikely. Completed 3-day course of azithromycin.
Pseudo-hyponatremia -resolved.
Hypothyroidism -continue levothyroxine.
DM2 with hyperglycemia -continue metformin. Low resistance NovoLog scale. Hemoglobin A1c 7.9%. Glucose 103 this morning, but daytime glucoses yesterday up to 346.
Expect steroid induced hyperglycemia.
Continue daily Lantus, started 04/26. May need to add mealtime NovoLog.
Do not anticipate discharging on insulin. Encouraged diet, exercise, weight loss to better control glucoses.
Chronic heart failure preserved EF -BNP 1070. Clinically looks euvolemic. Resume home doses of furosemide.
Hyperlipidemia -atorvastatin.
ISHMAEL -CPAP intolerant.
Full code
Dispo -ambulate today in hallway and see how she feels. If she feels comfortable, can discharge on steroid taper today as long as her pharmacy is open on . Outpatient follow-up.
Anticipated Discharge: Within 24 hours
Subjective/Interval History
-
Date of Service: April 27, 2025
Patient seen and examined. No new complaints.
Objective Data
-
Vital Signs:
Vital Signs
Temp Pulse Resp BP Pulse Ox
97.6 F 80 18 140/81 98
04/26/25 23:12 04/27/25 08:07 04/27/25 08:07 04/26/25 23:12 04/27/25 08:07
I&O
04/26/25 04/27/25 04/28/25
06:59 06:59 06:59
Intake Total 1320 / 1320 1500 / 1500
Balance 1320 / 1320 1500 / 1500
Review of Systems
-
History Source: Patient
All other systems: Reviewed and negative
[2025-04-27 11:48] LABS: Glucose - Point of Care 176 mg/dl (70-99)
[2025-04-27] MEDS: NOVOLOG FLEXPEN-LOW RESISTANCE 1 UNITS SC (12:32)
[2025-04-27 15:10] VITALS: BP 115/67
--- NOTE | 2025-04-27 16:09 | W.DS.TRANS ---
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
-
Discharge Instructions:
Discharge Diagnosis/Procedures COPD exacerbation
Diet Diabetic, Carb Controlled
Activity As tolerated
Driving Restrictions As prior to admission
Bathing Restrictions None
Instructions:
Stand-Alone Forms:
Changes to Home Medications: No
Discharge Medications:
DC Medications w/original date entered in [employer]
montelukast 10 mg tablet 10 mg PO DAILY Lung/breathing issues 07/12/11
levothyroxine 137 mcg tablet (Synthroid) 137 mcg PO DAILY Thyroid 06/09/18
atorvastatin 10 mg tablet 10 mg PO DAILY High cholesterol 04/29/21
metformin 500 mg tablet,extended release 24 hr 500 mg PO TID Diabetes 04/15/22
furosemide 20 mg tablet (Lasix) 20 mg PO DAILY Fluid Retention/Swelling 09/18/22
albuterol sulfate 2.5 mg/3 mL (0.083 %) solution for nebulization 2.5 mg inhalation R BID Lung/Breathing Issues 11/19/23
albuterol sulfate 90 mcg/actuation aerosol inhaler 2 puff inhalation R Q4HPRN PRN sob 11/19/23
budesonide 0.5 mg/2 mL suspension for nebulization 0.5 mg inhalation R BID Lung/Breathing Issues 11/19/23
cholecalciferol (vitamin D3) 25 mcg (1,000 unit) tablet 25 mcg PO DAILY Supplement 11/19/23
mepolizumab 100 mg/mL subcutaneous auto-injector (Nucala) 100 mg SC QMONTH Lung/Breathing Issues 11/19/23
fluticasone fur. 200 mcg-umeclid 62.5 mcg-vilant 25 mcg inhalat.powder (Trelegy Ellipta) 1 inh inhalation R DAILY Lung/Breathing Issues 01/05/25
pantoprazole 40 mg tablet,delayed release 40 mg PO DAILY Gastrointestinal Issue 01/05/25
therapeutic multivitamin 1 tab PO DAILY Supplement 01/05/25
dupilumab 300 mg/2 mL subcutaneous pen injector (Dupixent) 300 mg SC Q2W Lung/Breathing Issues 03/14/25
azithromycin 250 mg tablet 250 mg PO Q48H Lung/Breathing Issues 04/24/25
prednisone 20 mg tablet 20 mg PO DAILY Anti-Inflammatory 04/24/25
Held on 04/27/25. Instructions: resume after you complete the steroid taper
guaifenesin 600 mg tablet, extended release 12 hr (Mucinex) 600 mg PO BID Congestion #0 tabs 04/27/25
prednisone 10 mg tablet 10 mg PO DIRECTED #60 tabs 04/27/25
Home Medication Changes
Pending Results: No
[2025-04-27 16:32] LABS: Glucose - Point of Care 246 mg/dl (70-99)
== END 2025-04-27 18:18 | disposition home or self-care (01) | DRG 189 ==
LOC: 4 WEST ACU 13:26
PROVIDERS: Physician Assistant; ADMITTING PHYSICIAN Hospitalist; EMERGENCY PHYSICIAN Emergency Medicine; FAMILY PHYSICIAN Family Medicine
PROC: 5A09357 Assistance with Respiratory Ventilation, Less than 24 Consecutive Hours, Continuous Positive Airway Pressure (ICD-10-PCS; 2025-04-25)
DX: J96.21 Acute and chronic respiratory failure with hypoxia (principal); J44.1 Chronic obstructive pulmonary disease with (acute) exacerbation; I50.30 Unspecified diastolic (congestive) heart failure; J44.0 Chronic obstructive pulmonary disease with (acute) lower respiratory infection; E03.9 Hypothyroidism, unspecified; K21.9 Gastro-esophageal reflux disease without esophagitis; E11.65 Type 2 diabetes mellitus with hyperglycemia; I11.0 Hypertensive heart disease with heart failure; L20.9 Atopic dermatitis, unspecified; G47.33 Obstructive sleep apnea (adult) (pediatric); I87.2 Venous insufficiency (chronic) (peripheral); E78.5 Hyperlipidemia, unspecified; K29.70 Gastritis, unspecified, without bleeding; K22.70 Barrett's esophagus without dysplasia; Z99.81 Dependence on supplemental oxygen; Z87.891 Personal history of nicotine dependence; Z87.19 Personal history of other diseases of the digestive system; Z79.84 Long term (current) use of oral hypoglycemic drugs; Z79.51 Long term (current) use of inhaled steroids; Z79.52 Long term (current) use of systemic steroids; Z90.49 Acquired absence of other specified parts of digestive tract; Z88.0 Allergy status to penicillin; Z88.1 Allergy status to other antibiotic agents; Z91.040 Latex allergy status; Z79.890 Hormone replacement therapy
CPT/HCPCS: 71045; 71046; 80048; 80053; 82962; 83036; 83880; 85025; 87040; 87502; 87811; 93005; 94640; 96374; 99285

== ENCOUNTER 2025-05-09 13:39 | Outpatient (RCR) | payer MEDICARE, BC, SELFPAY ==
[2025-05-09 13:53] VITALS: BP 116/58
[2025-05-09] MEDS: NUCALA 1 MG SC (14:04)
== END 2025-05-10 10:23 | disposition home or self-care (01) ==
LOC: OID 13:39
PROVIDERS: ATTENDING PHYSICIAN Internal Medicine Critical Care Medicine; FAMILY PHYSICIAN Family Medicine
DX: J44.9 Chronic obstructive pulmonary disease, unspecified (principal); J45.40 Moderate persistent asthma, uncomplicated; Z87.01 Personal history of pneumonia (recurrent)
CPT/HCPCS: 96372; J2182